=== PATIENT | male | born 1955 | race Caucasian/White ===

== ENCOUNTER 2023-03-17 07:30 | Outpatient (RCR) | payer MEDICARE, OTHER, SELFPAY | END 2023-06-05 11:27 | disposition home or self-care (01) | PROVIDERS: PCP Family Medicine; Visit Provider Family Medicine | DX: M54.16 Radiculopathy, lumbar region (principal); M54.50 Low back pain, unspecified; Z51.89 Encounter for other specified aftercare | CPT/HCPCS: 97110; 97140; 97161 ==

== ENCOUNTER 2023-03-24 17:17 | Outpatient (CLI) | payer MEDICARE, OTHER, SELFPAY | END 2023-03-24 17:18 | disposition home or self-care (01) | LOC: AMB 04-03 15:25 | PROVIDERS: PCP Family Medicine; Visit Provider Family Medicine | DX: R10.9 Unspecified abdominal pain (principal) | CPT/HCPCS: A0425; A0427 ==

== ENCOUNTER 2023-03-24 17:56 | Inpatient (IN) | payer MEDICARE, SELFPAY ==
[2023-03-24] VITALS (48 sets, daily range): BP systolic 116–159; BP diastolic 81–130; PULSE 63–150; RESP 16–18; TEMP 36.9–37.4; O2SAT 92–99; BMI 26.6; BMI 25.1
--- NOTE | 2023-03-24 18:07 | ED_ITS ---
HPI - General Adult General Time Seen by Provider: 18:07 Date Seen: 03/24/23 Chief complaint: Groin Pain Stated complaint: ill Time Seen by Provider: 03/24/23 18:03 Source: patient, EMS and RN notes reviewed Mode of arrival: EMS Limitations: no limitations History of Present Illness HPI narrative: This 68-year-old male was brought in by EMS for severe right hip/groin pain. States he was just getting up to go to the bathroom, stood, took a few steps and felt a snapping type pain in his right groin. He felt a similar pain but to lesser extent during physical therapy recently. He started physical therapy on March 13 for sciatica, diagnosed of urgent care. He was having pain from his back into his right leg. He did get a course of prednisone and muscle relaxant, probably Flexeril. He then was given oxycodone and Tylenol. He states he has had no imaging, no x-rays. There has been no trauma, he has had no fevers or chills, no falls. Earlier today he did note below the knee felt a little tingly, no acute numbness tingling right now. EMS did give him fentanyl EN route, it is vastly improved the right groin pain. It was a popping sensation that was severe and painful. He is asked if physical therapy has any concerns or thoughts that they brought up, he is not aware of any. He states he did schedule appointment today for follow-up to consider having some imaging done. He is noted to be tachycardic on arrival but is not feeling this, no chest pain, no shortness of breath. He is in the 150s on arrival, appears to be atrial fibrillation on the monitor. Will be getting an EKG. He does not feel is heart beating fast. He has not drank any alcohol in the last couple weeks discuss he has not been feeling well. Prior to that he states he would have probably 1-2 beers daily after work but maybe not every day. Related Data Home Medications Medication Instructions Recorded Confirmed gabapentin 300 mg capsule mg PO 03/24/23 lisinopril 10 1 tab PO DAILY 03/24/23 03/24/23 mg-hydrochlorothiazide 12.5 mg tablet oxycodone 5 mg tablet mg PO 03/24/23 Allergies Allergy/AdvReac Type Severity Reaction Status Date / Time No Known Drug Allergies Allergy Verified 03/24/23 18:04 Review of Systems Status of ROS: Reports: 6 or more systems reviewed and unremarkable except as noted in History and below PFSH PFSH Medical History Hypertension ?I10 - Essential (primary) hypertension (ICD-10) Surgical History H/O inguinal hernia repair ?Z98.890 - Other specified postprocedural states (ICD-10) ?Z87.19 - Personal history of other diseases of the digestive system (ICD-10) Social History (Updated 03/24/23 @ 22:38 by Jeri Telles PA-C) Do you use any of these nicotine containing products: None How often do you have a drink containing alcohol: never How often do you have six or more drinks on one occasion: Never AUDIT-C Alcohol total score: 0 Non-prescribed substance use: denies use Exam Const: Vital Signs, click to edit/add: Vital Signs - 24 hr 03/24/23 17:59 03/24/23 18:03 03/24/23 18:04 Temperature 98.5 F Pulse Rate 133 H 131 H Pulse Rate [Right Pulse Oximeter] 150 H Respiratory Rate 18 Blood Pressure 156/125 H Blood Pressure [Ri ght Upper Arm] 156/125 H Pulse Oximetry 95 96 95 Oxygen Delivery Me thod Room Air 03/24/23 18:15 03/24/23 18:18 03/24/23 18:30 Temperature Pulse Rate 134 H 135 H 125 H Pulse Rate [Right Pulse Oximeter] Respiratory Rate Blood Pressure 142/99 H Blood Pressure [Ri ght Upper Arm] Pulse Oximetry 96 94 94 Oxygen Delivery Me thod 03/24/23 18:31 03/24/23 18:33 03/24/23 18:50 Temperature Pulse Rate 116 H 100 Pulse Rate [Right Pulse Oximeter] Respiratory Rate Blood Pressure 126/101 H 145/130 H Blood Pressure [Ri ght Upper Arm] Pulse Oximetry 92 99 95 Oxygen Delivery Me thod 03/24/23 18:51 03/24/23 19:00 03/24/23 19:01 Temperature Pulse Rate 117 H 115 H 108 H Pulse Rate [Right Pulse Oximeter] Respiratory Rate Blood Pressure 132/109 H Blood Pressure [Ri ght Upper Arm] Pulse Oximetry 94 95 94 Oxygen Delivery Me thod 03/24/23 19:15 03/24/23 19:16 03/24/23 19:30 Temperature Pulse Rate 90 97 119 H Pulse Rate [Right Pulse Oximeter] Respiratory Rate Blood Pressure 148/104 H Blood Pressure [Ri ght Upper Arm] Pulse Oximetry 96 96 96 Oxygen Delivery Me thod 03/24/23 19:32 03/24/23 19:45 03/24/23 19:46 Temperature Pulse Rate 117 H 115 H 101 H Pulse Rate [Right Pulse Oximeter] Respiratory Rate Blood Pressure 155/105 H 142/94 H Blood Pressure [Ri ght Upper Arm] Pulse Oximetry 95 95 94 Oxygen Delivery Me thod 03/24/23 19:47 03/24/23 20:00 03/24/23 20:01 Temperature Pulse Rate 123 H 117 H 102 H Pulse Rate [Right Pulse Oximeter] Respiratory Rate Blood Pressure 116/97 H Blood Pressure [Ri ght Upper Arm] Pulse Oximetry 92 95 95 Oxygen Delivery Me thod 03/24/23 20:15 03/24/23 20:17 03/24/23 20:30 Temperature Pulse Rate 98 116 H 85 Pulse Rate [Right Pulse Oximeter] Respiratory Rate Blood Pressure 141/107 H Blood Pressure [Ri ght Upper Arm] Pulse Oximetry 96 96 96 Oxygen Delivery Me thod 03/24/23 20:31 03/24/23 20:45 03/24/23 20:46 Temperature Pulse Rate 100 103 H 114 H Pulse Rate [Right Pulse Oximeter] Respiratory Rate Blood Pressure 145/114 H 146/93 H Blood Pressure [Ri ght Upper Arm] Pulse Oximetry 97 96 95 Oxygen Delivery Me thod 03/24/23 21:00 03/24/23 21:01 03/24/23 21:02 Temperature Pulse Rate 95 104 H 97 Pulse Rate [Right Pulse Oximeter] Respiratory Rate Blood Pressure 138/102 H Blood Pressure [Ri ght Upper Arm] Pulse Oximetry 95 95 96 Oxygen Delivery Me thod 03/24/23 21:15 03/24/23 21:16 03/24/23 21:30 Temperature Pulse Rate 106 H 95 70 Pulse Rate [Right Pulse Oximeter] Respiratory Rate Blood Pressure 126/81 Blood Pressure [Ri ght Upper Arm] Pulse Oximetry 95 94 96 Oxygen Delivery Me thod 03/24/23 21:32 03/24/23 21:45 03/24/23 21:46 Temperature Pulse Rate 75 69 71 Pulse Rate [Right Pulse Oximeter] Respiratory Rate Blood Pressure 150/109 H 145/105 H Blood Pressure [Ri ght Upper Arm] Pulse Oximetry 95 96 95 Oxygen Delivery Me thod 03/24/23 21:47 03/24/23 22:00 03/24/23 22:00 Temperature Pulse Rate 69 66 Pulse Rate [Right Pulse Oximeter] Respiratory Rate 16 Blood Pressure Blood Pressure [Ri ght Upper Arm] Pulse Oximetry 96 96 Oxygen Delivery Me thod 03/24/23 22:01 03/24/23 22:15 03/24/23 22:16 Temperature Pulse Rate 69 64 64 Pulse Rate [Right Pulse Oximeter] Respiratory Rate Blood Pressure 149/117 H 146/99 H Blood Pressure [Ri ght Upper Arm] Pulse Oximetry 96 96 96 Oxygen Delivery Me thod 03/24/23 22:17 03/24/23 22:30 03/24/23 22:31 Temperature Pulse Rate 63 68 67 Pulse Rate [Right Pulse Oximeter] Respiratory Rate Blood Pressure 130/99 H Blood Pressure [Ri ght Upper Arm] Pulse Oximetry 96 96 95 Oxygen Delivery Me thod 03/24/23 22:45 03/24/23 22:47 Temperature Pulse Rate 64 65 Pulse Rate [Right Pulse Oximeter] Respiratory Rate Blood Pressure 159/101 H Blood Pressure [Ri ght Upper Arm] Pulse Oximetry 96 96 Oxygen Delivery Me thod Julio is lying flat in the bed and is looking comfortable, alert, interactive. He does notably have his right leg flexed at the hip and the knee, resting the foot on the bed. Sclera clear, conjugate gaze, symmetrical facial function. No neck masses noted. Lungs are clear anteriorly and at the axilla, no tachypnea. CV is irregular and fast, do not hear any murmur, normal S1-S2, no S3-S4. Abdomen is soft, nontender, nondistended. He has no inguinal mass or tenderness. I can internally and externally rotate his hip and he does not have hip pain per se. If I do a straight leg raise, he does complain of some pain in the thigh area. The knee itself is nontender. He has a little superficial sensation of skin change along the proximal tibial area. It does not seem to be the bone or the tibia itself underlying but rather a paresthesia of the skin. He has no lower extremity edema on this side, no calf tenderness. Strength is 5/5 and symmetric of his lower extremities, good dorsalis pedis pulses, normal light touch sensation of the toes, the skin coloration seems to be the same within both lower extremities. Documenting provider has reviewed patient's vital signs: yes Course Course ED Course: Reviewed with Julio that we will obtain some imaging. We will start with plain films, look at his lumbar spine, look at his pelvis and right hip. Reviewed with him he is also in atrial fibrillation, needs cardiac monitoring, pulse oximetry, will do a bolus IV fluids and give him 5 mg IV metoprolol. He will need a full complement of labs. He does not appear to have infection but an infectious source could stimulate potential atrial fibrillation, need to watch him closely to ensure that this is and systemic issues of infection. It is possible that he just has some underlying atrial fibrillation that he is unaware of. Will work for rate control, will need to discuss anticoagulation with him potentially. He reportedly has a right lumbar radiculopathy, need to consider other etiologies. It is possible he could have had a groin strain or irritation of a groin muscle with physical therapy potentially. Maybe he has been altering his gait. Will have to see but labs and imaging show. This point he does not think he can walk on this leg at all without significant pain. He states his pain is controlled while he is just lying here rest after the fentanyl from EMS. Reevaluation(s) Time of Reevaluation #1: 20:06 Reevaluation #1: Reviewed with patient and his that the images need to be resent to Radiology, there was an issue with the transmission. I do not see anything definitive on my preliminary review. He does appear to have what looks being L1 old anterior wedging, will await the radiologist's over-read. So far labs are not showing anything concerning. Heart rate was in the 110 when I was in talking to him but as we were discussing things, did jump back up to 130s. His is now present, states she has been at all his recent visits, does not recollect that his pulse has been elevated. We discussed atrial fibrillation, concern for possible stroke risk with it. Right now he needs rate control. Anticoagulation will need to be discussed more with him. He is not a candidate for cardioversion as he has no idea that his heart rate is fast and thus we have no idea when this started. Will give another small dose of 2.5 mg IV metoprolol and initial 25 mg oral dose metoprolol immediate release. Time of Reevaluation #2: 21:31 Reevaluation #2: Have spoken with Jeri Telles whom is covering the hospital floor. We have discussed this patient. She was able to see his visit with Carmenza Gallardo from the . She noted that there was right thigh knee pain noted after sitting for long periods with hunting. Ultrasound has not been done from what Jeir sees in the records. We will obtain a right lower extremity ultrasound. As I was talking to Jeri Telles, patient reportedly cardioverted. Follow-up EKG showing sinus rhythm. His imaging of his right thigh is showing soft tissue medial dystrophic calcification. I do think that this needs further imaging, likely an MRI would be more beneficial. Patient is going to need to come in for pain management. He cannot walk on this leg right now without severe pain. Potentially imaging his lumbar spine with MRI just to see if there is any impingement would likely be greatly beneficial. I do worry about this medial pain that he is feeling with the popping sensation and seen that there is a dystrophic calcification in the medial leg. Hospitalist does accept. Vital Signs Vital signs: Initial Vital Signs Temperature 98.5 F 03/24/23 17:59 Temperature Source Temporal Artery Scan 03/24/23 17:59 Pulse Rate 150 H 03/24/23 17:59 Pulse Rhythm Irregular 03/24/23 17:59 Respiratory Rate 18 03/24/23 17:59 Blood Pressure 156/125 H 03/24/23 17:59 Blood Pressure Mean 135 H 03/24/23 17:59 Blood Pressure Position Sitting 03/24/23 17:59 Pulse Oximetry 95 03/24/23 17:59 Oxygen Delivery Method Room Air 03/24/23 17:59 Vital Signs Temperature 98.5 F 03/24/23 17:59 Pulse Rate 150 H 03/24/23 17:59 Respiratory Rate 18 03/24/23 17:59 Blood Pressure 156/125 H 03/24/23 17:59 Pulse Oximetry 95 03/24/23 17:59 Oxygen Delivery Method Room Air 03/24/23 17:59 Temperature 99.4 F 03/24/23 23:19 Pulse Rate 64 03/24/23 23:19 Respiratory Rate 16 03/24/23 23:19 Blood Pressure 147/98 H 03/24/23 23:19 Pulse Oximetry 98 03/24/23 23:19 Oxygen Delivery Method Room Air 03/24/23 23:19 Medications Administered Medications: Discontinued Medications Generic Name Dose Route Start Last Admin Trade Name Dee PRN Reason Stop Dose Admin Fentanyl 50 mcg 03/24/23 20:28 03/24/23 20:42 Fentanyl 100 Mcg/2 Ml Inj IVP 03/24/23 20:29 50 mcg ONCE ONE Administration Sodium Chloride 500 mls @ 500 mls/hr 03/24/23 18:18 03/24/23 19:31 0.9 % Sodium Chloride 500 Ml IV 03/24/23 19:17 Infused .Q1H ONE Infusion Metoprolol Tartrate 5 mg 03/24/23 18:18 03/24/23 18:29 Metoprolol Tartrate 1 Mg/Ml Inj IVP 03/24/23 18:19 5 mg ONCE ONE Administration Metoprolol Tartrate 2.5 mg 03/24/23 20:09 03/24/23 20:20 Metoprolol Tartrate 1 Mg/Ml Inj IVP 03/24/23 20:10 2.5 mg ONCE ONE Administration Metoprolol Tartrate 25 mg 03/24/23 20:09 03/24/23 20:19 Metoprolol Tartrate 25 Mg Tablet PO 03/24/23 20:10 25 mg ONCE ONE Administration Medical Decision Making Lab Data Lab results reviewed: Yes I reviewed the patient's lab results Labs: Lab Results 03/24/23 Range/Units 18:30 WBC 16.95 H (4.50-11.00) K/uL RBC 6.16 H (4.30-5.90) m/uL Hgb 18.0 H (13.5-17.5) gm/dL Hct 50.7 (37.0-53.0) % MCV 82 (80-100) fL MCH 29 (26-34) pg MCHC 36 (32-36) gm/dL RDW Coeff of Mary 11.7 (11.5-15.5) % Plt Count 297 (140-440) K/uL Neut % (Auto) 86.9 H (42.0-72.0) % Lymph % (Auto) 4.8 L (20-44) % [place] % (Auto) 7.8 (0.0-11.0) % Eos % (Auto) 0.2 (0.0-7.0) % Baso % (Auto) 0.1 (0.0-3.0) % Neut # (Auto) 14.70 H (1.7-7.0) K/uL Lymph # (Auto) 0.80 L (0.90-2.90) K/uL [place] # (Auto) 1.30 H (0.00-0.90) K/UL Eos # (Auto) 0.00 (0.00-0.50) K/uL Baso # (Auto) 0.00 (0.00-0.30) K/uL Abs Immat Gran (auto) 0.00 (0.00-0.30) K/uL Imm/Tot Granulo (auto) 0.2 % Sodium 130 L (135-149) mmol/L Potassium 3.6 (3.6-5.1) mmol/L Chloride 95 L (96-114) mmol/L Carbon Dioxide 21 (20-32) mmol/L Anion Gap 14 (7-15) mEq/L BUN 25 (7-30) mg/dL Creatinine 0.6 (0.5-1.5) mg/dL Estimated Creat Clear 71.68 Estimated GFR 106 ml/min Glucose 125 H (60-115) mg/dL Lactate 1.5 (0.5-1.9) mmol/L Calcium 9.0 (8.4-10.6) mg/dL Magnesium 2.1 (1.5-2.6) mg/dL Total Bilirubin 1.4 (0.1-1.5) mg/dL AST 24 (12-35) U/L ALT 38 (4-50) U/L Alkaline Phosphatase 59 (40-150) U/L Total Creatine Kinase 48 L (54-186) U/L Troponin I < 0.01 L (0.01-0.04) ng/mL C-Reactive Protein 0.5 (0.5-1.0) mg/dL NT-Pro-B Natriuret Pep 36 pg/mL Total Protein 6.9 (6.0-8.3) g/dL Albumin 4.4 (3.3-5.0) g/dL Ethyl Alcohol < 0.01 L (0.01-0.03) % Imaging Data Chest x-ray: Attestation: I have reviewed the pertinent imaging results. My impression: No acute pathology on my preliminary review. Radiologist's impression: Patient: JULIO CHEEK Facility:?[facility] Patient ID:?[id number] Site Patient ID:?[id number]. Site :?1955 Study:?XRay Chest 1 VIEW-03/24/2023 8:05:38 PM Ordering Physician:?Alisa Hutchinson Final Report: INDICATION: Chest pain with atrial fibrillation and RVR. TECHNIQUE: Chest 1 views. COMPARISON: None. FINDINGS: Cardiovasculature and mediastinum: Heart size and vasculature are normal in caliber and appearance. Lungs and pleural spaces: Lungs are clear. No sign of infiltrate or mass. No sign of pleural effusion. No pneumothorax. Bones and soft tissues: No significant findings. IMPRESSION: No acute or significant findings. Dictated by Jorge Luis Guzmán MD @ 03/24/2023 8:37:50 PM (Electronic Signature) XR right hip: Attestation: I have reviewed the pertinent imaging results. Radiologist's impression: Patient: JULIO CHEEK Facility:?[facility] Patient ID:?[id number] Site Patient ID:?[id number]. Site :?1955 Study:?XRay Hip PELVIS AND RT HIP-03/24/2023 8:04:29 PM Ordering Physician:?Alisa Hutchinson Final Report: Indication: Right hip and groin pain. Technique: Two views of the right hip, single AP view of the pelvis. Comparison: None Findings/Impression: No acute fracture or dislocation. Nmyz-va-xyfowrhw degenerative changes of the bilateral hips. Enthesopathic changes along the right femoral greater trochanter. Dystrophic soft tissue calcifications in the proximal medial right thigh. Postsurgical changes in the lower pelvis. Dictated by Barbara Ruggiero MD @ 03/24/2023 8:42:59 PM (Electronic Signature) XR lumbar spine: Attestation: I have reviewed the pertinent imaging results. My impression: Anterior wedging of L1 that I can see, await Radiology over-read. Radiologist's impression: Patient: JULIO CHEEK Facility:?[facility] Patient ID:?[id number] Site Patient ID:?[id number]. Site :?1955 Study:?XRay Spine Lumbar 2 views-03/24/2023 8:03:25 PM Ordering Physician:?Alisa Hutchinson Final Report: Indication: Right sciatica. Technique: Two views of the lumbar spine, AP, cross-table lateral. Comparison: None Findings/Impression: Mild anterior compression deformity of the L1 vertebral body, age-indeterminate. No evidence of traumatic malalignment. Extensive facet arthropathy at the levels of L4-L5, and L5-S1. Large fecal burden noted within the visualized colon. Dictated by Barbara Ruggiero MD @ 03/24/2023 8:34:46 PM (Electronic Signature) Venous US: Attestation: I have reviewed the pertinent imaging results. Radiologist's impression: Patient: JULIO CHEEK Facility:?[facility] Patient ID:?[id number] Site Patient ID:?[id number]. Site :?1955 Study:?US Extremity Right -03/24/2023 10:26:46 PM Ordering Physician:?Alisa Hutchinson Final Report: INDICATION: Leg pain and swelling. TECHNIQUE: Ultrasound venous duplex lower right extremity. Compression venous exam was performed using garcia-scale, color Doppler, and spectral Doppler analysis. COMPARISON: None. FINDINGS: Deep veins: Sonographic imaging demonstrates the right common femoral, deep femoral, superficial femoral, popliteal, posterior tibial and the contralateral left common femoral veins to be fully compressible with normal color Doppler blood flow. Superficial veins: Greater saphenous vein is fully compressible. No popliteal cyst. IMPRESSION: No DVT in the right lower extremity. Dictated by Joe Salinas MD @ 03/24/2023 11:31:25 PM (Electronic Signature) ECG Data Attestation: I personally reviewed and interpreted this ECG as follows: (Atrial fibrillation with rapid ventricular response, rate 138 beats per minute. Some nonspecific ST segment changes particularly inferiorly, mild flipped T-wave inversion in 1 and aVL. QT corrected 524 milliseconds.) Prior ECG tracings: not available for review Interpretation: EKG from 9:29 p.m. shows sinus rhythm, 67 beats per minute. Q-waves V1 without any ST segment changes. QT corrected 409 milliseconds. Critical Care Time Critical Care Time Critical Care Time: Yes Attestation: The patient required my highest level preparedness to intervene emergently and I personally spent this critical care time directly and personally managing the patient. This critical care time included: Obtaining a history; Examining the patient; Pulse oximetry; Ordering and reviewing of studies; Arranging urgent treatment with development of a management plan; Evaluation of patients response to treatment; Frequent reassessment discussions with other providers. This critical care time was performed to assess and manage the high probability of imminent life-threatening deterioration that could result in multiorgan failure. It was exclusive of separate billable procedures and treating other patients and teaching time. Total Critical Care Time in Minutes: 60 Discharge Plan Discharge Clinical Impression: Acute pain of right thigh, Paroxysmal atrial fibrillation Patient Disposition: Admitted As Observation
--- NOTE | 2023-03-24 18:16 | CRLHL7_ITS ---
For Patients: As a result of the Cures Act, medical imaging exams and procedure reports are released immediately into your electronic medical record. You may view this report before your referring provider. If you have questions, please contact your health care provider. Indication: Right hip and groin pain. Technique: Two views of the right hip, single AP view of the pelvis. Comparison: None Findings/Impression: No acute fracture or dislocation. Coaa-cu-auywzlvo degenerative changes of the bilateral hips. Enthesopathic changes along the right femoral greater trochanter. Dystrophic soft tissue calcifications in the proximal medial right thigh. Postsurgical changes in the lower pelvis. Dictated by Barbara Ruggiero MD @ 03/24/2023 8:42:59 PM (Electronically Signed)
--- NOTE | 2023-03-24 18:16 | CRLHL7_ITS ---
For Patients: As a result of the Century Cures Act, medical imaging exams and procedure reports are released immediately into your electronic medical record. You may view this report before your referring provider. If you have questions, please contact your health care provider. Indication: Right sciatica. Technique: Two views of the lumbar spine, AP, cross-table lateral. Comparison: None Findings/Impression: Mild anterior compression deformity of the L1 vertebral body, age-indeterminate. No evidence of traumatic malalignment. Extensive facet arthropathy at the levels of L4-L5, and L5-S1. Large fecal burden noted within the visualized colon. Dictated by Barbara Ruggiero MD @ 03/24/2023 8:34:46 PM (Electronically Signed)
--- NOTE | 2023-03-24 18:17 | CRLHL7_ITS ---
For Patients: As a result of the Cures Act, medical imaging exams and procedure reports are released immediately into your electronic medical record. You may view this report before your referring provider. If you have questions, please contact your health care provider. INDICATION: Chest pain with atrial fibrillation and RVR. TECHNIQUE: Chest 1 views. COMPARISON: None. FINDINGS: Cardiovasculature and mediastinum: Heart size and vasculature are normal in caliber and appearance. Lungs and pleural spaces: Lungs are clear. No sign of infiltrate or mass. No sign of pleural effusion. No pneumothorax. Bones and soft tissues: No significant findings. IMPRESSION: No acute or significant findings. Dictated by Jorge Luis Guzmán MD @ 03/24/2023 8:37:50 PM (Electronically Signed)
[2023-03-24] MEDS: 0.9 % SODIUM CHLORIDE 500 ML 500 ML IV (18:29)
[2023-03-24] MEDS: METOPROLOL TARTRATE 1 MG/ML inj 5 MG IVP (18:29)
[2023-03-24 18:31] LABS: Lactate* 1.5 mmol/L (0.5-1.9)
[2023-03-24 18:42] LABS: Basophils Percent Auto 0.1 % (0.0-3.0); Eosinophils Percent Auto 0.2 % (0.0-7.0); Hematocrit 50.7 % (37.0-53.0); Immature Granulocytes Pct Auto 0.2 %; Lymphocytes Percent Auto 4.8 % (20-44); Mean Corpuscular HGB Conc 36 gm/dL (32-36); Mean Corpuscular Hemoglobin 29 pg (26-34); Mean Corpuscular Volume 82 fL (80-100); Monocytes Percent Auto 7.8 % (0.0-11.0); Neutrophils Percent Auto 86.9 % (42.0-72.0); Platelet Count* 297 K/uL (140-440); RDW Coefficient of Variation % 11.7 % (11.5-15.5); Red Blood Count 6.16 m/uL (4.30-5.90); White Blood Count* 16.95 K/uL (4.50-11.00)
[2023-03-24 18:44] LABS: Slide Review Reflex No
[2023-03-24 18:49] LABS: Albumin* 4.4 g/dL (3.3-5.0); Chloride* 95 mmol/L (96-114)
[2023-03-24 18:50] LABS: Sodium* 130 mmol/L (135-149)
[2023-03-24 18:51] LABS: Potassium* 3.6 mmol/L (3.6-5.1)
[2023-03-24 18:52] LABS: Bilirubin Total* 1.4 mg/dL (0.1-1.5); Creatinine* 0.6 mg/dL (0.5-1.5); Est. Creatinine Clearance* 71.68; Estimated Glomerular Filt Rate 106 ml/min
[2023-03-24 18:53] LABS: Alanine Aminotransferase* 38 U/L (4-50); Alkaline Phosphatase* 59 U/L (40-150); Aspartate Amino Transferase* 24 U/L (12-35); Blood Urea Nitrogen* 25 mg/dL (7-30); Carbon Dioxide* 21 mmol/L (20-32); Creatine Kinase* 48 U/L (54-186); Glucose* 125 mg/dL (60-115); Total Protein* 6.9 g/dL (6.0-8.3)
[2023-03-24 18:54] LABS: Magnesium* 2.1 mg/dL (1.5-2.6)
[2023-03-24 18:55] LABS: Anion Gap 14 mEq/L (7-15); Ethanol* < 0.01 % (0.01-0.03)
[2023-03-24 18:56] LABS: C Reactive Protein* 0.5 mg/dL (0.5-1.0)
[2023-03-24 19:05] LABS: NT Pro B Type NatriureticPept* 36 pg/mL; Troponin I* < 0.01 ng/mL (0.01-0.04)
[2023-03-24] MEDS: METOPROLOL TARTRATE 25 MG TABLET PO (20:19)
[2023-03-24] MEDS: METOPROLOL TARTRATE 1 MG/ML inj 2.5 MG IVP (20:20)
[2023-03-24] MEDS: fentaNYL 100 MCG/2 ML inj 50 MCG IVP (20:42)
--- NOTE | 2023-03-24 21:30 | CRLHL7_ITS ---
For Patients: As a result of the Century Cures Act, medical imaging exams and procedure reports are released immediately into your electronic medical record. You may view this report before your referring provider. If you have questions, please contact your health care provider. INDICATION: Leg pain and swelling. TECHNIQUE: Ultrasound venous duplex lower right extremity. Compression venous exam was performed using garcia-scale, color Doppler, and spectral Doppler analysis. COMPARISON: None. FINDINGS: Deep veins: Sonographic imaging demonstrates the right common femoral, deep femoral, superficial femoral, popliteal, posterior tibial and the contralateral left common femoral veins to be fully compressible with normal color Doppler blood flow. Superficial veins: Greater saphenous vein is fully compressible. No popliteal cyst. IMPRESSION: No DVT in the right lower extremity. Dictated by Joe Salinas MD @ 03/24/2023 11:31:25 PM (Electronically Signed)
--- NOTE | 2023-03-24 22:21 | PM.IMHP1 ---
Hospitalist- H&P: HPI History of Present Illness Date Seen: 03/24/23 Chief complaint: ill Narrative: Julio Nelson is a 68 year old male hypertension, diverticulitis, osteoarthritis right knee, bilateral inguinal hernia repair 4 years ago is admitted to the medical floor from the ED for right groin pain unrelieved by IV pain medications and inability to safely ambulate. Patient is seen in the ED with his at bedside and reports onset of right-sided low back pain radiating to right leg the Friday after Thanksgiving. Prior to that he had been experiencing right-sided pain in the flank area without related urinary symptoms. That pain has since resolved. He denies any trauma or injury related to right leg pain. He had been sitting in a deer stand for several hours, at least 4 hours at a time, and when he was done that night had excruciating pain. He was well enough the next morning to drive home per his . He has had pain ever since that date without a day of relief. Some days worse than others. Describes the pain as intense from groin to knee. Occasional popping sensation. Worse with flexion at the hip. He also reports a pins and needles like pain into the right dowling. No pain in the foot or toes. Denies weakness or loss of function of the right lower extremity. No change in bowel or bladder. Denies pain or swelling into the scrotum. Has been seen in the clinic and urgent care and has been started on 2 courses of steroids as well as oxycodone and gabapentin without relief of pain. Denies recent fevers chills sweats. No nausea vomiting. Tonight he was brought in by EMS who found the patient to be tachycardic and in atrial fibrillation. Patient has no personal or family history of cardiac arrhythmias. Denies sensation of racing heart, palpitations, flutters. Denies shortness of breath or dyspnea on exertion. Has had some episodes of lightheadedness and occasional headaches. When he was in the clinic on 03/19/2023, heart rate is documented as 78. In the ED, he was given metoprolol and reported to convert to normal sinus rhythm. Patient denies personal or family history of blood clots. Patient is a nonsmoker. Weekly but not daily alcohol use, 1-2 beers each time. No history of withdrawals or seizures. Review of Systems Narrative: REVIEW OF SYSTEMS: Complete review of systems performed and negative unless otherwise stated in HPI or below. PFSH [facility] Medical History Hypertension ?I10 - Essential (primary) hypertension (ICD-10) Surgical History H/O inguinal hernia repair ?Z98.890 - Other specified postprocedural states (ICD-10) ?Z87.19 - Personal history of other diseases of the digestive system (ICD-10) Social History (Updated 03/24/23 @ 22:38 by Jeri Telles PA-C) Do you use any of these nicotine containing products: None How often do you have a drink containing alcohol: 4 or more times a week How many standard drinks containing alcohol do you have on a typical day: 1 or 2 AUDIT-C Alcohol total score: 4 Meds Home Medications and Allergies Home Medications Medication Instructions Recorded Confirmed Type gabapentin 300 mg capsule mg PO 03/24/23 History lisinopril 10 1 tab PO DAILY 03/24/23 03/24/23 History mg-hydrochlorothiazide 12.5 mg tablet oxycodone 5 mg tablet mg PO 03/24/23 History Allergies Allergy/AdvReac Type Severity Reaction Status Date / Time No Known Drug Allergies Allergy Verified 03/24/23 18:04 Exam Narrative: Exam Narrative: PHYSICAL EXAM General: Lying flat in bed, very pleasant, conversant, NAD HEENT: Normocephalic, atraumatic, sclera white, EOMI, oral mucosa moist Cardiovascular: RRR currently, S1S2. No pitting edema Pulmonary: CTA bilaterally without rhonchi, rales, expiratory wheezes. No dyspnea Abdominal: Soft, nondistended, palpable pain right groin Neurological: Alert, answering questions appropriately, cranial nerves intact, no focal findings Extremities: No gross joint deformity or swelling. AROMI, groin and right lower extremity pain with flexion. Neurovascularly intact. Skin: Warm, dry. No erythema, streaking, rash Const: Vital Signs, click to edit/add: Vital Signs - 24 hr 03/24/23 17:59 03/24/23 18:03 03/24/23 18:04 Temperature 98.5 F Pulse Rate 133 H 131 H Pulse Rate [Right Pulse Oximeter] 150 H Respiratory Rate 18 Blood Pressure 156/125 H Blood Pressure [Ri ght Upper Arm] 156/125 H Pulse Oximetry 95 96 95 Oxygen Delivery Me thod Room Air 03/24/23 18:15 03/24/23 18:18 03/24/23 18:30 Temperature Pulse Rate 134 H 135 H 125 H Pulse Rate [Right Pulse Oximeter] Respiratory Rate Blood Pressure 142/99 H Blood Pressure [Ri ght Upper Arm] Pulse Oximetry 96 94 94 Oxygen Delivery Me thod 03/24/23 18:31 03/24/23 18:33 03/24/23 18:50 Temperature Pulse Rate 116 H 100 Pulse Rate [Right Pulse Oximeter] Respiratory Rate Blood Pressure 126/101 H 145/130 H Blood Pressure [Ri ght Upper Arm] Pulse Oximetry 92 99 95 Oxygen Delivery Me thod 03/24/23 18:51 03/24/23 19:00 03/24/23 19:01 Temperature Pulse Rate 117 H 115 H 108 H Pulse Rate [Right Pulse Oximeter] Respiratory Rate Blood Pressure 132/109 H Blood Pressure [Ri ght Upper Arm] Pulse Oximetry 94 95 94 Oxygen Delivery Me thod 03/24/23 19:15 03/24/23 19:16 03/24/23 19:30 Temperature Pulse Rate 90 97 119 H Pulse Rate [Right Pulse Oximeter] Respiratory Rate Blood Pressure 148/104 H Blood Pressure [Ri ght Upper Arm] Pulse Oximetry 96 96 96 Oxygen Delivery Me thod 03/24/23 19:32 03/24/23 19:45 03/24/23 19:46 Temperature Pulse Rate 117 H 115 H 101 H Pulse Rate [Right Pulse Oximeter] Respiratory Rate Blood Pressure 155/105 H 142/94 H Blood Pressure [Ri ght Upper Arm] Pulse Oximetry 95 95 94 Oxygen Delivery Me thod 03/24/23 19:47 03/24/23 20:00 03/24/23 20:01 Temperature Pulse Rate 123 H 117 H 102 H Pulse Rate [Right Pulse Oximeter] Respiratory Rate Blood Pressure 116/97 H Blood Pressure [Ri ght Upper Arm] Pulse Oximetry 92 95 95 Oxygen Delivery Me thod 03/24/23 20:15 03/24/23 20:17 03/24/23 20:30 Temperature Pulse Rate 98 116 H 85 Pulse Rate [Right Pulse Oximeter] Respiratory Rate Blood Pressure 141/107 H Blood Pressure [Ri ght Upper Arm] Pulse Oximetry 96 96 96 Oxygen Delivery Me od 03/24/23 20:31 03/24/23 20:45 03/24/23 20:46 Temperature Pulse Rate 100 103 H 114 H Pulse Rate [Right Pulse Oximeter] Respiratory Rate Blood Pressure 145/114 H 146/93 H Blood Pressure [Ri ght Upper Arm] Pulse Oximetry 97 96 95 [facility] 03/24/23 21:00 03/24/23 21:01 03/24/23 21:02 Temperature Pulse Rate 95 104 H 97 Pulse Rate [Right Pulse Oximeter] Respiratory Rate Blood Pressure 138/102 H Blood Pressure [Ri ght Upper Arm] Pulse Oximetry 95 95 96 [facility] 03/24/23 21:15 03/24/23 21:16 03/24/23 21:30 Temperature Pulse Rate 106 H 95 70 Pulse Rate [Right Pulse Oximeter] Respiratory Rate Blood Pressure 126/81 Blood Pressure [Ri ght Upper Arm] Pulse Oximetry 95 94 96 Oxygen Delivery [facility] 03/24/23 21:32 03/24/23 21:45 03/24/23 21:46 Temperature Pulse Rate 75 69 71 Pulse Rate [Right Pulse Oximeter] Respiratory Rate Blood Pressure 150/109 H 145/105 H Blood Pressure [Ri ght Upper Arm] Pulse Oximetry 95 96 95 [facility] 03/24/23 22:00 Temperature Pulse Rate Pulse Rate [Right Pulse Oximeter] Respiratory Rate 16 Blood Pressure Blood Pressure [Ri ght Upper Arm] Pulse Oximetry Oxygen Delivery [facility] Hospitalist - H&P: Result Labs Labs: Short CBC 03/24/23 Range/Units 18:30 WBC 16.95 H (4.50-11.00) K/uL Hgb 18.0 H (13.5-17.5) gm/dL Hct 50.7 (37.0-53.0) % Plt Count 297 (140-440) K/uL BMP 03/24/23 18:30 Sodium 130 L Potassium 3.6 Chloride 95 L Carbon Dioxide 21 BUN 25 Creatinine 0.6 Glucose 125 H Calcium 9.0 Cardiac Enzymes 03/24/23 Range/Units 18:30 Total Creatine Kinase 48 L (54-186) U/L Troponin I < 0.01 L (0.01-0.04) ng/mL Liver Function 03/24/23 Range/Units 18:30 Total Bilirubin 1.4 (0.1-1.5) mg/dL AST 24 (12-35) U/L ALT 38 (4-50) U/L Alkaline Phosphatase 59 (40-150) U/L Albumin 4.4 (3.3-5.0) g/dL ECG Attestation: I personally reviewed and interpreted this ECG as follows: ECG interpretation date: 03/24/23 Interpretation: 180: Atrial fibrillation with RVR, ventricular rate 138, QTC 524. Repeat EKG at 2128: Normal sinus rhythm, ventricular rate 67, QTC 409 Imaging Chest x-ray: Attestation: I have reviewed the pertinent imaging results. Radiologist's impression: Chest 1 views. COMPARISON: None. FINDINGS: Cardiovasculature and mediastinum: Heart size and vasculature are normal in caliber and appearance. Lungs and pleural spaces: Lungs are clear. No sign of infiltrate or mass. No sign of pleural effusion. No pneumothorax. Bones and soft tissues: No significant findings. IMPRESSION: No acute or significant findings. Lumbar spine: Attestation: I have reviewed the pertinent imaging results. Radiologist's impression: Two views of the lumbar spine, AP, cross-table lateral. Comparison: None Findings/Impression: Mild anterior compression deformity of the L1 vertebral body, age-indeterminate. No evidence of traumatic malalignment. Extensive facet arthropathy at the levels of L4-L5, and L5-S1. Large fecal burden noted within the visualized colon. Pelvis/right hip: Attestation: I have reviewed the pertinent imaging results. Radiologist's impression: Two views of the right hip, single AP view of the pelvis. Comparison: None Findings/Impression: No acute fracture or dislocation. [id number]-fg-[id number] degenerative changes of the bilateral hips. Enthesopathic changes along the right femoral greater trochanter. Dystrophic soft tissue calcifications in the proximal medial right thigh. Postsurgical changes in the lower pelvis. Venous US: Radiologist's impression: Right lower extremity DVT ultrasound - preliminary reading as negative for DVT Assessment and Plan Assessment and plan (1) Acute pain of right thigh: Problem comment: -onset 03/01/2023, nontraumatic -preliminary ultrasound negative for acute DVT -plain film shows dystrophic soft tissue calcifications in the proximal medial right thigh -magnesium and phosphorus levels ordered -MRI right lower extremity ordered -pain management to include scheduled Tylenol, lidocaine patch, ice/heat p.r.n., Dilaudid p.r.n. -PT/OT consults -further workup as warranted Status: Acute (2) Low back pain: Problem comment: -onset 03/01/2023, nontraumatic -mild anterior compression deformity of the L1 vertebral body, age indeterminate with arthropathy of L4-L5 and L5-S1 -MRI lumbar spine ordered -pain management as above -PT/OT consults -further workup as warranted Status: Acute (3) Paroxysmal atrial fibrillation: Problem comment: -unknown date of onset as asymptomatic, recent history of sedentary activity, no known family history, no personal history of cancer, recent use of prednisone -converted to NSR in ED following metoprolol dosing -telemetry -continue metoprolol 25 mg b.i.d. -Lovenox while hospitalized, convert to DOAC at discharge -outpatient Cardiology follow-up Status: Acute (4) Hypertension: Problem comment: -continue lisinopril hydrochlorothiazide, monitoring blood pressure while adding metoprolol for atrial fibrillation -hypertensive in the ED, continue to monitor Status: Chronic (5) Constipation: Problem comment: -in setting of recent opioid use -MiraLax daily and docusate twice daily until bowel movement Status: Acute Plan CODE: Full as discussed with patient and VTE PPX: Lovenox, transition to DOAC at discharge Disposition: Observation
--- NOTE | 2023-03-24 23:06 | ED.NURSE ---
pt report given to kimmy JOYNER
[2023-03-24] MEDS: ACETAMINOPHEN 325 MG TABLET 1000 MG PO (23:44)
[2023-03-24] MEDS: LIDOCAINE 5% PATCH 1 PATCH TRANSDERMA (23:44)
[2023-03-24] MEDS: HYDROmorphone 0.5 mg/0.5 ml inj IVP (23:54)
[2023-03-25] VITALS (9 sets, daily range): BP systolic 125–166; BP diastolic 78–106; PULSE 55–74; RESP 16; TEMP 36.3–37.2; O2SAT 94–98
[2023-03-25] MEDS: MELATONIN 3 MG TABLET PO (00:04)
[2023-03-25] MEDS: HYDROmorphone 0.5 mg/0.5 ml inj IVP ×5 (02:21→17:41)
[2023-03-25] MEDS: hydrOXYzine pamoate 25 MG CAPSULE PO ×3 (03:03→14:35)
[2023-03-25] MEDS: OXYCODONE 5 MG TABLET PO ×6 (03:05→23:38)
[2023-03-25] MEDS: ACETAMINOPHEN 500 MG TABLET 1000 MG PO ×4 (06:11→23:45)
--- NOTE | 2023-03-25 06:28 | PC.NURSE ---
Arrived to floor at 2300. A&O, pleasant and cooperative. Pt appeared uncomfortable and rating pain in right groin 5-10/10 pain. See eMAR for interventions. Uses urinal in bed. Pt reports being unable to sit on edge of bed due to pain. Pt hypertensive, VS otherwise stable. Lidocaine patch to right lower back.
[2023-03-25 07:03] LABS: Chloride* 97 mmol/L (96-114)
[2023-03-25 07:04] LABS: Hematocrit 50.8 % (37.0-53.0); Hemoglobin* 17.8 gm/dL (13.5-17.5); Mean Corpuscular HGB Conc 35 gm/dL (32-36); Mean Corpuscular Hemoglobin 29 pg (26-34); Mean Corpuscular Volume 84 fL (80-100); Platelet Count* 250 K/uL (140-440); Potassium* 3.7 mmol/L (3.6-5.1); Red Blood Count 6.07 m/uL (4.30-5.90); Sodium* 133 mmol/L (135-149); White Blood Count* 9.34 K/uL (4.50-11.00)
[2023-03-25 07:07] LABS: Anion Gap 8 mEq/L (7-15); Blood Urea Nitrogen* 23 mg/dL (7-30); Carbon Dioxide* 28 mmol/L (20-32); Creatinine* 0.7 mg/dL (0.5-1.5); Est. Creatinine Clearance* 74.01; Estimated Glomerular Filt Rate 101 ml/min; Glucose* 110 mg/dL (60-115)
[2023-03-25 07:08] LABS: Calcium* 9.2 mg/dL (8.4-10.6); Magnesium* 2.2 mg/dL (1.5-2.6); Phosphorus* 3.8 mg/dL (2.5-4.5)
[2023-03-25 07:10] LABS: C Reactive Protein* 0.6 mg/dL (0.5-1.0)
[2023-03-25 07:17] LABS: Slide Review Reflex No
[2023-03-25] MEDS: hydroCHLOROthiazide 12.5 MG CAPSULE PO (07:43)
[2023-03-25] MEDS: lisinopriL 10 MG TABLET PO (07:43)
[2023-03-25] MEDS: polyethylene glycoL 3350 17 GM PACK PO (07:44)
[2023-03-25] MEDS: KETOROLAC 30 MG/ML inj 15 MG IVP ×2 (07:44→15:45)
[2023-03-25] MEDS: SENNOSIDES/DOCUSATE TABLET 1 TAB PO ×2 (07:44→20:46)
[2023-03-25] MEDS: SODIUM CHLORIDE 0.9 % (FLUSH) 10 ML SYRINGE 5 ML IVF ×2 (07:45→20:46)
[2023-03-25 07:47] LABS: Troponin I* < 0.01 ng/mL (0.01-0.04)
--- NOTE | 2023-03-25 07:59 | CRLHL7_ITS ---
For Patients: As a result of the Century Cures Act, medical imaging exams and procedure reports are released immediately into your electronic medical record. You may view this report before your referring provider. If you have questions, please contact your health care provider. INDICATION: Right groin pain. COMPARISON: Right hip radiograph 03/24/2023. TECHNIQUE: Noncontrast MRI scan of the right hip. FINDINGS: Right hip: The right hip joint space is well maintained. No hip joint effusion is present. No fracture or osteonecrosis is present. The right hip girdle musculature is unremarkable. Pelvis and left hip: Large [id number] images demonstrate intact sacroiliac joints and pubic symphysis. The left hip joint space is well maintained. There are changes of previous lower anterior abdominal wall hernia repair. No recurrent abdominal wall hernia or mass is identified. No intrapelvic abnormality is identified. No acute fracture or osteonecrosis is seen. IMPRESSION: No acute bone or joint abnormality. Dictated by Perez Harding MD @ 03/25/2023 1:11:42 PM (Electronically Signed)
[2023-03-25] MEDS: GABAPENTIN 300 MG CAPSULE PO ×2 (08:06→20:46)
[2023-03-25] MEDS: METOPROLOL TARTRATE 25 MG TABLET PO ×2 (08:23→20:46)
--- NOTE | 2023-03-25 08:30 | PC.NURSE ---
Patient experiencing right groin pain. Patient stated he is fearful to get up because of what happened at home yesterday. PRN pain meds were given. Encouraged patient to pivot to chair to eat breakfast to reduce aspiration risk. Patient agreeable to try. Patient was able to stand and pivot without help. Once in chair, patient stated I can't do this, it hurts too bad, I need to get back to bed. Patient transferred back to bed independently. Ice pack was applied to groin. Patient wanted to rest to get the pain to calm down. Patient was checked on at 0930 and stated pain had calmed down and was doing okay.
[2023-03-25 08:40] LABS: Erythrocyte SedimentationRate* 2 mm/hr (2-15)
[2023-03-25] MEDS: LORazepam 2 MG/ML inj 0.5 MG IVP ×2 (11:52→17:43)
--- NOTE | 2023-03-25 14:10 | CRLHL7_ITS ---
For Patients: As a result of the Century Cures Act, medical imaging exams and procedure reports are released immediately into your electronic medical record. You may view this report before your referring provider. If you have questions, please contact your health care provider. INDICATION: Right groin pain. TECHNIQUE : Lumbar spine MRI without contrast. The following sequences were obtained: Sagittal T1, T2 weighted and STIR sequences. Axial T1 and T2 weighted sequences. COMPARISON: Lumbar spine radiographs from 03/24/2023. FINDINGS : Five lumbar type vertebral bodies, with the last fully formed disc space designated as L5-S1. Normal lumbar lordotic curve. No recent compression fracture or marrow replacing process. Chronic appearing L1 wedge compression fracture with minimal anterior height loss. Lower cord/conus signal is normal. The conus terminates at a normal location. No intradural lesion. Small left renal cyst. No retroperitoneal or paraspinous mass. Discs/Endplates: L5-S1 advanced disc height loss is disc desiccation and endplate remodeling. Mild disc degeneration elsewhere. Findings at individual levels as follows: T11-12: No spinal canal or neural foraminal stenosis. T12-L1: No spinal canal or neural foraminal stenosis. L1-2: Shallow right dorsal lateral protrusion with annular fissure minimally flattens the thecal sac. Bilateral low-grade facet arthrosis. No spinal canal or neural foraminal stenosis. L2-3: Mild disc bulge. Bilateral facet arthrosis. No spinal canal or neural foraminal stenosis. L3-4: No disc bulge. Bilateral grade facet arthrosis. No spinal canal or neural foraminal stenosis. L4-5: 12 millimeter right far lateral disc extrusion with cranial migration impinges the right L4 nerve root. Bilateral facet arthrosis. Mild left and moderate right neural foraminal stenosis. No spinal canal stenosis. L5-S1: Moderate disc bulge with overlying osteophytic ridging. Superimposed shallow right central protrusion component. Bilateral facet arthrosis. Left subarticular recess stenosis with mild impingement of the traversing left S1 nerve root. Contact of the traversing right S1 nerve root. Mild right and [id number] left neural foraminal stenosis. Imaged SI joints: Bilateral arthrosis. Imaged sacrum: Within normal limits. IMPRESSION: 1. At L4-5, a right far lateral disc extrusion with cranial migration impinges the right L4 nerve root. 2. At L5-S1, left subarticular recess stenosis with mild impingement of the traversing left S1 nerve root. Dictated by Alexandre Briggs MD @ 03/25/2023 7:24:20 PM (Electronically Signed)
--- NOTE | 2023-03-25 14:13 | PM.IMPN1 ---
Progress Note: A&P Assessment and plan (1) Acute pain of right thigh: Problem details: -onset 03/01/2023, nontraumatic -preliminary ultrasound negative for acute DVT -plain film shows dystrophic soft tissue calcifications in the proximal medial right thigh -MRI right hip, unremarkable -pain management to include scheduled Tylenol, lidocaine patch, ice/heat p.r.n., Dilaudid p.r.n. -PT/OT consults -further workup as warranted, will order MRI of the lumbosacral spine this afternoon Status: Acute (2) Low back pain: Problem details: -onset 03/01/2023, nontraumatic -mild anterior compression deformity of the L1 vertebral body, age indeterminate with arthropathy of L4-L5 and L5-S1 -MRI lumbar spine ordered -pain management as above -PT/OT consults -further workup as warranted Status: Acute (3) Paroxysmal atrial fibrillation: Problem details: -unknown date of onset as asymptomatic, recent history of sedentary activity, no known family history, no personal history of cancer, recent use of prednisone -converted to NSR in ED following metoprolol dosing -telemetry -decrease metoprolol 12.5 mg b.i.d. -Lovenox while hospitalized, convert to DOAC at discharge -outpatient Cardiology follow-up Status: Acute (4) Hypertension: Problem details: -continue lisinopril hydrochlorothiazide, monitoring blood pressure while adding metoprolol for atrial fibrillation -hypertensive in the ED, continue to monitor Status: Chronic (5) Constipation: Problem details: -in setting of recent opioid use -MiraLax daily and docusate twice daily until bowel movement Status: Acute Plan Reviewed with patient and they are agreeable to above stated plans and recommendations Time Spent With Patient Total time spent: 40 minutes Subjective Date Seen: 03/25/23 Interval history: Hospital day 2. History of present illness: ?Julio Nelson is a 68 year old male hypertension, diverticulitis, osteoarthritis right knee, bilateral inguinal hernia repair 4 years ago is admitted to the medical floor from the ED for right groin pain unrelieved by IV pain medications and inability to safely ambulate. Patient is seen in the ED with his at bedside and reports onset of right-sided low back pain radiating to right leg the Friday after Thanksgiving. Prior to that he had been experiencing right-sided pain in the flank area without related urinary symptoms. That pain has since resolved. He denies any trauma or injury related to right leg pain. He had been sitting in a deer stand for several hours, at least 4 hours at a time, and when he was done that night had excruciating pain. He was well enough the next morning to drive home per his . He has had pain ever since that date without a day of relief. Some days worse than others. Describes the pain as intense from groin to knee. Occasional popping sensation. Worse with flexion at the hip. He also reports a pins and needles like pain into the right dowling. No pain in the foot or toes. Denies weakness or loss of function of the right lower extremity. No change in bowel or bladder. Denies pain or swelling into the scrotum. Has been seen in the clinic and urgent care and has been started on 2 courses of steroids as well as oxycodone and gabapentin without relief of pain. Denies recent fevers chills sweats. No nausea vomiting. Tonight he was brought in by EMS who found the patient to be tachycardic and in atrial fibrillation. Patient has no personal or family history of cardiac arrhythmias. Denies sensation of racing heart, palpitations, flutters. Denies shortness of breath or dyspnea on exertion. Has had some episodes of lightheadedness and occasional headaches. When he was in the clinic on 03/19/2023, heart rate is documented as 78. In the ED, he was given metoprolol and reported to convert to normal sinus rhythm. Patient denies personal or family history of blood clots. 03/25/2023: Symptoms in low back and right leg are not improved. Was able to transfer from supine to sitting and sitting to standing and then to the recliner chair at his bedside with great difficulty. Demonstrating no focal motor neurologic deficits. When in the emergency department last night he spontaneously converted from atrial fib with rapid ventricular response to normal sinus rhythm. He has remained in normal sinus rhythm since then. Denies angina, syncope, nausea, vomiting, palpitations, diaphoresis, dyspnea. Exam Narrative: Exam Narrative: When he is laying still he is quite comfortable. When he attempts to move he becomes rather uncomfortable. I examine him in his hospital room. Alert, oriented to self, place, time, situation. From the, articulate, cooperative. Lungs clear to auscultation. Heart tones with regular rhythm, normal S1-S2, without murmur, gallop, or rub. Abdomen with active bowel sounds, soft, nontender. Sensation intact to light touch bilateral lower extremities. Again was able to transfer from supine to sitting, sitting to standing, and then ambulate a few feet from bed to chair at bedside. Had great discomfort with these efforts. Const: Vital Signs, click to edit/add: Vital Signs - 24 hr 03/24/23 17:59 03/24/23 18:03 03/24/23 18:04 Temperature 98.5 F Pulse Rate 133 H 131 H Pulse Rate [Pulse Oximeter] Pulse Rate [Right Pulse Oximeter] 150 H Respiratory Rate 18 Blood Pressure 156/125 H Blood Pressure [Le ft Arm] Blood Pressure [Ri ght Upper Arm] 156/125 H Pulse Oximetry 95 96 95 Oxygen Delivery Me thod Room Air 03/24/23 18:15 03/24/23 18:18 03/24/23 18:30 Temperature Pulse Rate 134 H 135 H 125 H Pulse Rate [Pulse Oximeter] Pulse Rate [Right Pulse Oximeter] Respiratory Rate Blood Pressure 142/99 H Blood Pressure [Le ft Arm] Blood Pressure [Ri ght Upper Arm] Pulse Oximetry 96 94 94 Oxygen Delivery Me thod 03/24/23 18:31 03/24/23 18:33 03/24/23 18:50 Temperature Pulse Rate 116 H 100 Pulse Rate [Pulse Oximeter] Pulse Rate [Right Pulse Oximeter] Respiratory Rate Blood Pressure 126/101 H 145/130 H Blood Pressure [Le ft Arm] Blood Pressure [Ri ght Upper Arm] Pulse Oximetry 92 99 95 Oxygen Delivery Me thod 03/24/23 18:51 03/24/23 19:00 03/24/23 19:01 Temperature Pulse Rate 117 H 115 H 108 H Pulse Rate [Pulse Oximeter] Pulse Rate [Right Pulse Oximeter] Respiratory Rate Blood Pressure 132/109 H Blood Pressure [Le ft Arm] Blood Pressure [Ri ght Upper Arm] Pulse Oximetry 94 95 94 Oxygen Delivery Me thod 03/24/23 19:15 03/24/23 19:16 03/24/23 19:30 Temperature Pulse Rate 90 97 119 H Pulse Rate [Pulse Oximeter] Pulse Rate [Right Pulse Oximeter] Respiratory Rate Blood Pressure 148/104 H Blood Pressure [Le ft Arm] Blood Pressure [Ri ght Upper Arm] Pulse Oximetry 96 96 96 Oxygen Delivery Me thod 03/24/23 19:32 03/24/23 19:45 03/24/23 19:46 Temperature Pulse Rate 117 H 115 H 101 H Pulse Rate [Pulse Oximeter] Pulse Rate [Right Pulse Oximeter] Respiratory Rate Blood Pressure 155/105 H 142/94 H Blood Pressure [Le ft Arm] Blood Pressure [Ri ght Upper Arm] Pulse Oximetry 95 95 94 Oxygen Delivery Me thod 03/24/23 19:47 03/24/23 20:00 03/24/23 20:01 Temperature Pulse Rate 123 H 117 H 102 H Pulse Rate [Pulse Oximeter] Pulse Rate [Right Pulse Oximeter] Respiratory Rate Blood Pressure 116/97 H Blood Pressure [Le ft Arm] Blood Pressure [Ri ght Upper Arm] Pulse Oximetry 92 95 95 Oxygen Delivery Me thod 03/24/23 20:15 03/24/23 20:17 03/24/23 20:30 Temperature Pulse Rate 98 116 H 85 Pulse Rate [Pulse Oximeter] Pulse Rate [Right Pulse Oximeter] Respiratory Rate Blood Pressure 141/107 H Blood Pressure [Le ft Arm] Blood Pressure [Ri ght Upper Arm] Pulse Oximetry 96 96 96 Oxygen Delivery Me thod 03/24/23 20:31 03/24/23 20:45 03/24/23 20:46 Temperature Pulse Rate 100 103 H 114 H Pulse Rate [Pulse Oximeter] Pulse Rate [Right Pulse Oximeter] Respiratory Rate Blood Pressure 145/114 H 146/93 H Blood Pressure [Le ft Arm] Blood Pressure [Ri ght Upper Arm] Pulse Oximetry 97 96 95 Oxygen Delivery Me thod 03/24/23 21:00 03/24/23 21:01 03/24/23 21:02 Temperature Pulse Rate 95 104 H 97 Pulse Rate [Pulse Oximeter] Pulse Rate [Right Pulse Oximeter] Respiratory Rate Blood Pressure 138/102 H Blood Pressure [Le ft Arm] Blood Pressure [Ri ght Upper Arm] Pulse Oximetry 95 95 96 Oxygen Delivery Me thod 03/24/23 21:15 03/24/23 21:16 03/24/23 21:30 Temperature Pulse Rate 106 H 95 70 Pulse Rate [Pulse Oximeter] Pulse Rate [Right Pulse Oximeter] Respiratory Rate Blood Pressure 126/81 Blood Pressure [Le ft Arm] Blood Pressure [Ri ght Upper Arm] Pulse Oximetry 95 94 96 Oxygen Delivery Me thod 03/24/23 21:32 03/24/23 21:45 03/24/23 21:46 Temperature Pulse Rate 75 69 71 Pulse Rate [Pulse Oximeter] Pulse Rate [Right Pulse Oximeter] Respiratory Rate Blood Pressure 150/109 H 145/105 H Blood Pressure [Le ft Arm] Blood Pressure [Ri ght Upper Arm] Pulse Oximetry 95 96 95 Oxygen Delivery Me thod 03/24/23 21:47 03/24/23 22:00 03/24/23 22:00 Temperature Pulse Rate 69 66 Pulse Rate [Pulse Oximeter] Pulse Rate [Right Pulse Oximeter] Respiratory Rate 16 Blood Pressure Blood Pressure [Le ft Arm] Blood Pressure [Ri ght Upper Arm] Pulse Oximetry 96 96 Oxygen Delivery Me thod 03/24/23 22:01 03/24/23 22:15 03/24/23 22:16 Temperature Pulse Rate 69 64 64 Pulse Rate [Pulse Oximeter] Pulse Rate [Right Pulse Oximeter] Respiratory Rate Blood Pressure 149/117 H 146/99 H Blood Pressure [Le ft Arm] Blood Pressure [Ri ght Upper Arm] Pulse Oximetry 96 96 96 Oxygen Delivery Me thod 03/24/23 22:17 03/24/23 22:30 03/24/23 22:31 Temperature Pulse Rate 63 68 67 Pulse Rate [Pulse Oximeter] Pulse Rate [Right Pulse Oximeter] Respiratory Rate Blood Pressure 130/99 H Blood Pressure [Le ft Arm] Blood Pressure [Ri ght Upper Arm] Pulse Oximetry 96 96 95 Oxygen Delivery Me thod 03/24/23 22:45 03/24/23 22:47 03/24/23 23:05 Temperature Pulse Rate 64 65 Pulse Rate [Pulse Oximeter] Pulse Rate [Right Pulse Oximeter] Respiratory Rate 16 Blood Pressure 159/101 H Blood Pressure [Le ft Arm] Blood Pressure [Ri ght Upper Arm] Pulse Oximetry 96 96 98 Oxygen Delivery Me thod Room Air 03/24/23 23:19 03/25/23 00:37 03/25/23 03:00 Temperature 99.4 F 99.0 F Pulse Rate 65 Pulse Rate [Pulse Oximeter] 64 66 Pulse Rate [Right Pulse Oximeter] Respiratory Rate 16 16 Blood Pressure Blood Pressure [Le ft Arm] 147/98 H 158/100 H Blood Pressure [Ri ght Upper Arm] Pulse Oximetry 98 96 Oxygen Delivery Me thod Room Air Room Air 03/25/23 08:08 03/25/23 11:10 Temperature 97.9 F 97.3 F L Pulse Rate Pulse Rate [Pulse Oximeter] 55 L Pulse Rate [Right Pulse Oximeter] 67 Respiratory Rate 16 16 Blood Pressure Blood Pressure [Le ft Arm] 151/105 H Blood Pressure [Ri ght Upper Arm] 166/106 H Pulse Oximetry 97 98 Oxygen Delivery Me thod Room Air Room Air Labs Labs: Laboratory Results - last 24 hr 03/24/23 03/25/23 03/25/23 18:30 06:13 07:17 WBC 16.95 H 9.34 RBC 6.16 H 6.07 H Hgb 18.0 H 17.8 H Hct 50.7 50.8 MCV 82 84 MCH 29 29 MCHC 36 35 RDW Coeff of Mary 11.7 Plt Count 297 250 Neut % (Auto) 86.9 H Lymph % (Auto) 4.8 L [place] % (Auto) 7.8 Eos % (Auto) 0.2 Baso % (Auto) 0.1 Neut # (Auto) 14.70 H Lymph # (Auto) 0.80 L [place] # (Auto) 1.30 H Eos # (Auto) 0.00 Baso # (Auto) 0.00 Abs Immat Gran (auto) 0.00 Imm/Tot Granulo (auto) 0.2 ESR 2 Sodium 130 L 133 L Potassium 3.6 3.7 Chloride 95 L 97 Carbon Dioxide 21 28 Anion Gap 14 8 BUN 25 23 Creatinine 0.6 0.7 Estimated Creat Clear 71.68 74.01 Estimated GFR 106 101 Glucose 125 H 110 Lactate 1.5 Calcium 9.0 9.2 Phosphorus 3.8 Magnesium 2.1 2.2 Total Bilirubin 1.4 AST 24 ALT 38 Alkaline Phosphatase 59 Total Creatine Kinase 48 L Troponin I < 0.01 L < 0.01 L C-Reactive Protein 0.5 0.6 NT-Pro-B Natriuret Pep 36 Total Protein 6.9 Albumin 4.4 Ethyl Alcohol < 0.01 L Lab Acknowledgement Test Added Imaging MR right hip: Attestation: I have reviewed the pertinent imaging results. Radiologist's impression: FINDINGS: Right hip: The right hip joint space is well maintained. No hip joint effusion is present. No fracture or osteonecrosis is present. The right hip girdle musculature is unremarkable. Pelvis and left hip: Large [id number] images demonstrate intact sacroiliac joints and pubic symphysis. The left hip joint space is well maintained. There are changes of previous lower anterior abdominal wall hernia repair. No recurrent abdominal wall hernia or mass is identified. No intrapelvic abnormality is identified. No acute fracture or osteonecrosis is seen. IMPRESSION: No acute bone or joint abnormality.
--- NOTE | 2023-03-25 14:20 | PC.NURSE ---
End of shift report: Patient is alert and oriented. Has had pain most of the day. Gets some relief with the Dilaudid. Has received PO Tylenol, oxy, Vistaril, IV Toradol, Dilaudid and Lorazepam. Patient resistive to getting out of bed. Attempted to sit in chair this morning but pain was too bad. Patient has been hypertensive. Has been in Normal sinus rhythm, sinus josé miguel at times today. Takes pills whole with water. BP is elevated and MD aware. Voiding without difficulty but urine is orange in color. No BM today but passing a lot of flatus. No BM since 03/23 per patient. Miralax and senna/Colace given. Tolerating a regular diet. Had MRI of hip this morning, will have MRI of lumbar this evening. Had bedside echocardiogram this afternoon. Good pulses in feet, but they are cool to touch. at bedside with patient most of shift.
--- NOTE | 2023-03-25 18:04 | PC.NURSE ---
shift note: vss stable. pt rating rt l/e pain . Prn medications administered. IV patent. Pt premedicated prior to MRI @6300.
[2023-03-25] MEDS: ENOXAPARIN 40 MG/0.4 ML INJ SUBCUT (20:46)
[2023-03-25] MEDS: LIDOCAINE 5% PATCH 1 PATCH TRANSDERMA (23:38)
[2023-03-26 03:19] VITALS: BP 146/95; PULSE 60; RESP 16; TEMP 37.1; O2SAT 97
[2023-03-26] MEDS: ACETAMINOPHEN 500 MG TABLET 1000 MG PO ×2 (06:12→12:21)
--- NOTE | 2023-03-26 06:15 | PC.NURSE ---
End of shift [id number]: A&O, pleasant and cooperative. Hypertensive but VS otherwise stable. Rating pain in right groin 07/15. See eMAR for interventions. Ambulated in room x3 and up to the bathroom with SBA, walker and gait belt. Denies lightheadedness or dizziness. Pt reports pain is better when ambulating.
[2023-03-26 07:00] VITALS: PULSE 64
[2023-03-26] MEDS: OXYCODONE 5 MG TABLET PO (08:33)
[2023-03-26] MEDS: polyethylene glycoL 3350 17 GM PACK PO (08:33)
[2023-03-26] MEDS: SENNOSIDES/DOCUSATE TABLET 1 TAB PO (08:34)
[2023-03-26] MEDS: METOPROLOL TARTRATE 25 MG TABLET PO (08:34)
[2023-03-26] MEDS: lisinopriL 10 MG TABLET PO (08:34)
[2023-03-26] MEDS: GABAPENTIN 300 MG CAPSULE PO (08:34)
[2023-03-26] MEDS: hydroCHLOROthiazide 12.5 MG CAPSULE PO (08:34)
[2023-03-26 08:35] VITALS: BP 139/79; PULSE 67; RESP 18; TEMP 36.6; O2SAT 96
--- NOTE | 2023-03-26 09:24 | PM.DS1 ---
DS: Providers Provider Date Seen: 03/26/23 Date of admission: 03/25/23 14:32 Primary care physician: González Stubbs MD Admitting Clinician: Marjorie Lang MD Consults: 03/24/23 23:05 Consult to Occupational Therapy [CONS] Routine Comment: Reason(s) for OT Consult:: Evaluate and Treat Any Restrictions?:: No Restrictions Consult to Physical Therapy [CONS] Routine Comment: Reason(s) for PT Consult:: Evaluate and Treat Any Restrictions?:: No Restrictions Attending Physician on discharge: Freddy Mills MD Date of Discharge: 03/26/23 DS: Diagnosis Discharge Diagnosis (1) Herniation of right side of L4-L5 intervertebral disc: Status: Acute Problem details: - MRI LS spine 03/25/2023: 1. At L4-5, a right far lateral disc extrusion with cranial migration impinges the right L4 nerve root. 2. At L5-S1, left subarticular recess stenosis with mild impingement of the traversing left S1 nerve root. (2) Degenerative joint disease (DJD) of lumbar spine: Status: Acute Problem details: - MRI LS spine 03/25/2023: 1. At L4-5, a right far lateral disc extrusion with cranial migration impinges the right L4 nerve root. 2. At L5-S1, left subarticular recess stenosis with mild impingement of the traversing left S1 nerve root. (3) Low back pain: Status: Acute Problem details: -onset 03/01/2023, nontraumatic -X-ray LS spine 03/24/2023: mild anterior compression deformity of the L1 vertebral body, age indeterminate with arthropathy of L4-L5 and L5-S1 - MRI LS spine 03/25/2023: 1. At L4-5, a right far lateral disc extrusion with cranial migration impinges the right L4 nerve root. 2. At L5-S1, left subarticular recess stenosis with mild impingement of the traversing left S1 nerve root. -pain management, Walker and cane -PT/OT consults -Refer to [facility] (4) Acute pain of right thigh: Status: Acute Problem details: -onset 03/01/2023, nontraumatic -Right LE duplex venous ultrasound 03/24/2023: negative for DVT -plain film X-ray 03/24/2023: dystrophic soft tissue calcifications in the proximal medial right thigh - Consider additional outpatient assessment as warranted - MRI LS spine 03/25/2023: 1. At L4-5, a right far lateral disc extrusion with cranial migration impinges the right L4 nerve root. 2. At L5-S1, left subarticular recess stenosis with mild impingement of the traversing left S1 nerve root. -pain management to include scheduled Tylenol, lidocaine patch, ice/heat p.r.n., Dilaudid p.r.n. -PT/OT consults -Refer to [facility] (5) Paroxysmal atrial fibrillation: Status: Acute Problem details: -unknown date of onset as asymptomatic, recent history of sedentary activity, no known family history, no personal history of cancer, recent use of prednisone -converted to NSR in ED following metoprolol dosing -telemetry -decrease metoprolol 12.5 mg b.i.d. -Lovenox while hospitalized, convert to DOAC at discharge -outpatient Cardiology follow-up (6) Hypertension: Status: Chronic Problem details: -continue lisinopril hydrochlorothiazide, monitoring blood pressure while adding metoprolol for atrial fibrillation -hypertensive in the ED, continue to monitor (7) Constipation: Status: Acute Problem details: -in setting of recent opioid use -Senna/docusate twice daily while on opioid analgesia DS: Summary Hospital Course Hospital Course: ?Julio Nleson is a 68 year old male hypertension, diverticulitis, osteoarthritis right knee, bilateral inguinal hernia repair 4 years ago is admitted to the medical floor from the ED for right groin pain unrelieved by IV pain medications and inability to safely ambulate. Patient is seen in the ED with his at bedside and reports onset of right-sided low back pain radiating to right leg the Friday after Thanksgiving. Prior to that he had been experiencing right-sided pain in the flank area without related urinary symptoms. That pain has since resolved. He denies any trauma or injury related to right leg pain. He had been sitting in a deer stand for several hours, at least 4 hours at a time, and when he was done that night had excruciating pain. He was well enough the next morning to drive home per his . He has had pain ever since that date without a day of relief. Some days worse than others. Describes the pain as intense from groin to knee. Occasional popping sensation. Worse with flexion at the hip. He also reports a pins and needles like pain into the right dowling. No pain in the foot or toes. Denies weakness or loss of function of the right lower extremity. No change in bowel or bladder. Denies pain or swelling into the scrotum. Has been seen in the clinic and urgent care and has been started on 2 courses of steroids as well as oxycodone and gabapentin without relief of pain. Denies recent fevers chills sweats. No nausea vomiting. Tonight he was brought in by EMS who found the patient to be tachycardic and in atrial fibrillation. Patient has no personal or family history of cardiac arrhythmias. Denies sensation of racing heart, palpitations, flutters. Denies shortness of breath or dyspnea on exertion. Has had some episodes of lightheadedness and occasional headaches. When he was in the clinic on 03/19/2023, heart rate is documented as 78. In the ED, he was given metoprolol and reported to convert to normal sinus rhythm. Patient denies personal or family history of blood clots. 03/25/2023: Symptoms in low back and right leg are not improved. Was able to transfer from supine to sitting and sitting to standing and then to the recliner chair at his bedside with great difficulty. Demonstrating no focal motor neurologic deficits. 03/26/2023: Symptoms modestly improved with non-pharmacological and pharmacological efforts and support, sufficiently that he can not perform his ADLs, can walk with a front-wheel walker. He and agree that he is in a much better situation than he was yesterday for returning home with plans as specified below. Regarding his new diagnosis of paroxysmal atrial fibrillation, when he presented to the emergency department he had asymptomatic A Fib RVR, and then spontaneously converted to normal sinus rhythm. He has remained in normal sinus rhythm for 48 hours since then. Denies angina, syncope, nausea, vomiting, palpitations, diaphoresis, dyspnea. Transthoracic echocardiogram obtained on 03/25/2023 was entirely normal with an ejection fraction of 60-65%. Recommended follow-up with his primary care physician and consider referral to Cardiology if warranted. We did start him on metoprolol tartrate 25 mg twice daily while in the hospital, in addition to his usual antihypertensive medications. Status at Discharge Functional status at discharge: uses cane/walker Overall status at discharge: patient is not back to baseline Time Spent with Patient Time attestation: Total time spent providing and/or coordinating discharge services: Time spent: Greater than 30 minutes Exam Narrative: Exam Narrative: He is no longer sitting motionless. He is moving more fluidly. Moving about in his bed. Able to transfer from supine to sitting without assistance. Feeding himself his breakfast. Able to walk with walker without assist. I examine him in his hospital room. Alert, oriented to self, place, time, situation. From the, articulate, cooperative. Lungs clear to auscultation. Heart tones with regular rhythm, normal S1-S2, without murmur, gallop, or rub. Abdomen with active bowel sounds, soft, nontender. Sensation intact to light touch bilateral lower extremities. Again was able to transfer from supine to sitting, sitting to standing, and then ambulate a few feet from bed to chair at bedside. Had much less discomfort with these efforts on day of discharge than he did the day prior. Const: Vital Signs, click to edit/add: Vital Signs - 24 hr 03/25/23 11:10 03/25/23 15:49 03/25/23 16:16 Temperature 97.3 F L 98.1 F Pulse Rate 74 Pulse Rate [Pulse Oximeter] 55 L 73 Respiratory Rate 16 16 Blood Pressure [Le ft Arm] 151/105 H 144/78 H Pulse Oximetry 98 94 Oxygen Delivery Me thod Room Air Room Air 03/25/23 16:16 03/25/23 19:31 03/25/23 22:34 Temperature 98.5 F Pulse Rate 74 68 Pulse Rate [Pulse Oximeter] 67 Respiratory Rate Blood Pressure [Le ft Arm] 154/97 H Pulse Oximetry 97 Oxygen Delivery Me thod 03/25/23 23:34 03/26/23 03:19 03/26/23 08:35 Temperature 98.9 F 98.8 F 97.8 F Pulse Rate Pulse Rate [Pulse Oximeter] 63 60 67 Respiratory Rate 16 16 18 Blood Pressure [Le ft Arm] 125/86 146/95 H 139/79 Pulse Oximetry 97 97 96 Oxygen Delivery Me thod Room Air Documenting provider has reviewed patient's vital signs: yes DS: Data Imaging Echo: Radiologist's impression: Normal transthoracic echocardiogram with ejection fraction of 60-65%. Right hip x-ray: Attestation: I have reviewed the pertinent imaging results. Radiologist's impression: Findings/Impression: No acute fracture or dislocation. [id number] degenerative changes of the bilateral hips. Enthesopathic changes along the right femoral greater trochanter. Dystrophic soft tissue calcifications in the proximal medial right thigh. Postsurgical changes in the lower pelvis. X-ray of lumbosacral spine: Attestation: I have reviewed the pertinent imaging results. Radiologist's impression: Findings/Impression: Mild anterior compression deformity of the L1 vertebral body, age-indeterminate. No evidence of traumatic malalignment. Extensive facet arthropathy at the levels of L4-L5, and L5-S1. Large fecal burden noted within the visualized colon. Chest x-ray: Attestation: I have reviewed the pertinent imaging results. Radiologist's impression: No acute abnormalities. Venous duplex ultrasound right lower extremity: Radiologist's impression: FINDINGS: Deep veins: Sonographic imaging demonstrates the right common femoral, deep femoral, superficial femoral, popliteal, posterior tibial and the contralateral left common femoral veins to be fully compressible with normal color Doppler blood flow. Superficial veins: Greater saphenous vein is fully compressible. No popliteal cyst. IMPRESSION: No DVT in the right lower extremity. MR - right hip: Attestation: I have reviewed the pertinent imaging results. Radiologist's impression: FINDINGS: Right hip: The right hip joint space is well maintained. No hip joint effusion is present. No fracture or osteonecrosis is present. The right hip girdle musculature is unremarkable. Pelvis and left hip: Large [id number] images demonstrate intact sacroiliac joints and pubic symphysis. The left hip joint space is well maintained. There are changes of previous lower anterior abdominal wall hernia repair. No recurrent abdominal wall hernia or mass is identified. No intrapelvic abnormality is identified. No acute fracture or osteonecrosis is seen. IMPRESSION: No acute bone or joint abnormality. MR- lumbosacral spine: Radiologist's impression: FINDINGS : Five lumbar type vertebral bodies, with the last fully formed disc space designated as L5-S1. Normal lumbar lordotic curve. No recent compression fracture or marrow replacing process. Chronic appearing L1 wedge compression fracture with minimal anterior height loss. Lower cord/conus signal is normal. The conus terminates at a normal location. No intradural lesion. Small left renal cyst. No retroperitoneal or paraspinous mass. Discs/Endplates: L5-S1 advanced disc height loss is disc desiccation and endplate remodeling. Mild disc degeneration elsewhere. Findings at individual levels as follows: T11-12: No spinal canal or neural foraminal stenosis. T12-L1: No spinal canal or neural foraminal stenosis. L1-2: Shallow right dorsal lateral protrusion with annular fissure minimally flattens the thecal sac. Bilateral low-grade facet arthrosis. No spinal canal or neural foraminal stenosis. L2-3: Mild disc bulge. Bilateral facet arthrosis. No spinal canal or neural foraminal stenosis. L3-4: No disc bulge. Bilateral grade facet arthrosis. No spinal canal or neural foraminal stenosis. L4-5: 12 millimeter right far lateral disc extrusion with cranial migration impinges the right L4 nerve root. Bilateral facet arthrosis. Mild left and moderate right neural foraminal stenosis. No spinal canal stenosis. L5-S1: Moderate disc bulge with overlying osteophytic ridging. Superimposed shallow right central protrusion component. Bilateral facet arthrosis. Left subarticular recess stenosis with mild impingement of the traversing left S1 nerve root. Contact of the traversing right S1 nerve root. Mild right and [id number] left neural foraminal stenosis. Imaged SI joints: Bilateral arthrosis. Imaged sacrum: Within normal limits. IMPRESSION: 1. At L4-5, a right far lateral disc extrusion with cranial migration impinges the right L4 nerve root. 2. At L5-S1, left subarticular recess stenosis with mild impingement of the traversing left S1 nerve root. Discharge Plan Discharge Disposition: Home, Self-Care Date of Admission: 03/25/23 14:32 Attending Provider on Discharge: Freddy Mills Primary Care Provider: González Stubbs Condition: Improved Anticipated Discharge Date/Time: 03/26/23 11:00 Discharge Medications: New hydroxyzine pamoate 25 mg Capsule 25 mg PO Q4H PRN (Reason: Pain) 14 Days Qty: 30 1RF acetaminophen 325 mg tablet 650 mg PO QID 14 Days Qty: 112 1RF ibuprofen 400 mg tablet 400 mg PO TID Qty: 90 2RF Rx Instructions: Take with food. Do not take on an empty stomach. omeprazole 20 mg capsule,delayed release(DR/EC) 20 mg PO DAILY Qty: 30 2RF Rx Instructions: Take this medication while taking prescribed ibuprofen for relief of pain and inflammation. oxycodone 5 mg tablet 5 mg PO QID PRN (Reason: pain) Qty: 30 0RF Rx Instructions: Do not take on an empty stomach. gabapentin 300 mg capsule 300 mg PO TID Qty: 90 2RF Rx Instructions: This medication helps decrease nerve pain. metoprolol tartrate 25 mg Tablet 25 mg PO BID 30 Days Qty: 60 1RF sennosides-docusate sodium [Stool Softener-Laxative] 8.6-50 mg Tablet 1 tab PO BID 30 Days Qty: 60 1RF Continued lisinopril-hydrochlorothiazide 10-12.5 mg tablet 1 tab PO DAILY Discontinued gabapentin 300 mg capsule 300 mg PO BID oxycodone 5 mg tablet 5 mg PO Q8H PRN Discharge Orders: Discharge Order (Routine); Ordered 03/26/23 Ordered By: Freddy Mills Patient Education: Acetaminophen (By mouth), Ibuprofen (By mouth), Omeprazole (By mouth), Hydroxyzine (By mouth), Gabapentin (By mouth), Oxycodone, Rapid Release (By mouth), Decision Aid for Herniated Disc in the Lower Back (GEN) Additional Instructions: 1. Keep appointments with Physical Therapy as already established; 2. Appointment at [facility] in 1-3 days; 3. Appointment with Dr. Stubbs next week regarding newly diagnosed paroxysmal atrial fibrillation and L4/L5 herniated disc with L4 impingement: consider cardiology consultation, and proceed physical therapy and with Spine Clinic assessments and interventions. Activity Level: Activity as Tolerated, Use Cane and Use Walker Discharge Diet: 2 gm Sodium Follow Up Appointments: González Stubbs MD [Primary Care Provider] - 04/02/23 11:45 am ([facility] for follow-up regarding symptomatic herniated disc at the right L4 region) Yoel Joyner MD [Staff Physician] - 04/17/23 11:00 am ([facility].) [facility] Inst[facility]
--- NOTE | 2023-03-26 13:14 | PC.NURSE ---
shift note: pt up with walker. Pt states rt lower back/hip pain 09/14. Pt medicated with prn meds and scheduled meds with no relief per pt. pt states he has increased dizziness when up ambulating. Dr. Amado notified and no further orders given. vss stable. pt afeb. IV dc'd intact Belongings sent with pt at nd. copies of dc instructions sent with pt at nd after review.
== END 2023-03-26 12:40 | disposition home or self-care (01) | DRG 552 ==
LOC: ED 21:57 → MEDSURG 22:57
PROVIDERS: Internal Medicine; Admitting Provider Physician Assistant; Emergency Provider Family Medicine; PCP Family Medicine; Visit Provider Physician Assistant
DX: M51.16 Intervertebral disc disorders with radiculopathy, lumbar region (principal); M51.17 Intervertebral disc disorders with radiculopathy, lumbosacral region; M48.07 Spinal stenosis, lumbosacral region; I48.0 Paroxysmal atrial fibrillation; M79.651 Pain in right thigh; I10 Essential (primary) hypertension; K59.03 Drug induced constipation; M47.896 Other spondylosis, lumbar region
CPT/HCPCS: 36415; 71045; 72100; 72148; 73502; 73721; 80048; 80053; 82077; 82550; 83605; 83735; 83880; 84100; 84484; 85025; 85027; 85651; 86140; 93306; 93971; 94761; 95992; 97110; 97162; 97165; 97530; 97535; 99285; 99291; G0378; A9270; J1170; J1650; J1885; J2060; J3010; J7120

== ENCOUNTER 2023-04-08 07:10 | Outpatient (CLI) | payer MEDICARE, SELFPAY | END 2023-04-08 07:11 | disposition home or self-care (01) | PROVIDERS: PCP Family Medicine; Visit Provider Family Medicine | DX: M54.16 Radiculopathy, lumbar region (principal); M51.36 Other intervertebral disc degeneration, lumbar region | CPT/HCPCS: 64483; J1100; Q9966 ==

== ENCOUNTER 2025-01-02 15:02 | Emergency (ER) | payer MEDICARE, SELFPAY ==
[2025-01-02] VITALS (8 sets, daily range): BP systolic 135–164; BP diastolic 86–107; PULSE 63–75; RESP 12–22; TEMP 37.2; O2SAT 97–99
--- OUTSIDE RECORDS SUMMARY | 2025-01-02 15:04 | XMS_ITS | Clinical Summary ---
Author Organization [employer] [facility] Address [address] [place] [address] Care Team Providers Care Pet Adoption Counselor Name Role Phone González Stubbs MD Primary Care Provider [phone] Chantel Ruiz MD Unavailable [phone] Cari Sargent MD Unavailable [phone] Allergies Active Allergy Reactions Criticality Noted Date Comments Unlisted Allergen (Include Detail In Comments) Rash 04/16/2023 Unknown what caused allergy - one of the medications for pain Was on hydroxyzine, gabapentin, and oxycodone all at the same time Medications metoprolol tartrate (LOPRESSOR) 50 mg tabletIndication s:Paroxysmal A-fib (HC),Essential hypertension TAKE 2 TABLETS(50 MG) BY MOUTH TWICE DAILY. Wait until they call for this. 180 Tablet 3 4 Active traMADoL (ULTRAM) 50 mg tabletIndication s:Left shoulder pain, unspecified chronicity Take 1 Tablet (50 mg) by mouth 3 times daily if needed for Pain. 15 Tablet 4 Active predniSONE (DELTASONE) 5 mg tabletIndication s:Chronic pain of both shoulders,TAYLOR positive,Bilater al hip pain,PMR (polymyalgia rheumatica) (HC) Take 1 Tablet (5 mg) by mouth once daily. 60 Tablet 1 5 Active Additional Information Patient not taking.Reported on 11/08/2024 predniSONE 1 mg tabletIndication s:PMR (polymyalgia rheumatica) (HC) Take 4 Tablets (4 mg) by mouth once daily with a meal. 360 Tablet 1 5 Active lisinopriL 10 mg tabletIndication s:Hypertension Take 1 Tablet (10 mg) by mouth once daily. 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 Diagnosed on MRI. Elevated PSA 06/29/2021 HTN (hypertension) 12/18/2007 Overview (06/20/2009): Updated by system to replace inactive record Diverticulitis of colon (without mention of hemo rrhage) 08/12/2006 Resolved Problems Problem Noted Date Diagnosed Date Resolved Date Cellulitis and abscess of toe 10/23/2009 07/01/2016 Encounters Date Type Department Care Team Description 11/08/2024 10:00 AM CDT Office Visit [facility] [address] [facility] [address] [place] [id number] Chantel Ruiz MD Follow Up (4 month follow up. ) 11/08/2024 Travel 11/05/2024 Travel from Last 3 Months Immunizations Immunization Administration Dates Next Due Td, Preservative Free (age >= 7 Years) 8 Tdap 01/07/2014 Family History Medical History Relation Name Comments Multiple sclerosis Brother 2 Juan of a n infection and MS at 60 Diabetes Father Other Father alzheimers of this at 72 Stroke Maternal Aunt Hypertension Mother Other Mother at 92 of c ovid and refusing treatment. Relation Name Status Comments Brother 1 Carl Alive Brother 2 Juan (Age 60) Father Maternal Aunt Mother (Age 92) Social History Tobacco Use Types Packs/Day Years Used Date Smoking Tobacco: Never Smokeless Tobacco: Never Tobacco Cessation:Counseling Given: Yes Alcohol Use Standard Drinks/Week Comments Yes 0 (1 standard drink = 0.6 oz pure alcohol) 2-3 times / week - see screening PHQ-2 Answer Date Recorded PHQ-2 TOTAL SCORE 0 11/05/2023 Social Connections Answer Date Recorded Do you often feel lonely or isolated from those around you? 0 03/08/2023 Alcohol Use Answer Date Recorded How often do you have a drink containing alcohol ? 3 11/25/2023 How many drinks containing a lcohol do you have on a typical day when you are drinking? 0 11/25/2023 How often do you have five or more drinks on one occasion? 0 11/25/2023 Financial Resource Strain Answer Date R ecorded Difficulty of Paying Living Expenses 3 03/08/2023 Difficulty of Paying Living Expenses Not on file 03/08/2023 Food Insecurity Answer Date Recorded Do you worry your food will run out before you are able to buy more? 1 03/08/2023 Transportation Needs Answer Date Record ed Does lack of transportation keep you from medica l appointments? 1 03/08/2023 Does lack of transportation keep you from work, meetings or getting things that you need? 1 03/08/2023 Housing Stability Answer Date Recorded What is your housing situation today? 1 03/08/2023 Utilities Answer Date Recorded Do you have trouble paying f or utilities (for example, heat, electricity, water, phone)? 1 03/08/2023 Sex and Gender Information Value Date Recorded Sex Assigned at Not on file Legal Sex Male 5:26 AM [employer] Gender Identity Not on file Sexual Orientation Not on file Occupation Industry Job Start Date Job End Date construction Not on file Not on file Not on file Obstetrics History Last Filed Vital Signs Vital Sign Reading Time Taken Comments Blood Pressure 112/70 11/08/2024 9:51 AM CDT Pulse 50 11/08/2024 9:51 AM CDT Temperature 36.7 C (98 F) 11/25/2023 3:41 PM CDT Respiratory Rate 18 03/08/2023 9:58 AM [employer] Oxygen Saturation 100% 11/08/2024 9:51 AM CDT Inhaled Oxygen Concentration - - Weight 82 kg (180 lb 11.2 oz) 11/08/2024 9:51 AM CDT Height 177 cm (5' 9.69) 11/08/2024 9:51 AM CDT Body Mass Index 26.16 11/08/2024 9:51 AM CDT Plan of Treatment Upcoming Encounters Date Type Department Care Team (Late st Contact Info) Description 03/10/2025 9:30 AM [employer] Office Visit [facility] [address] [address] [place] [address] [place] [address] Health Maintenance Due Date Last Done Comments Pneumococcal series for age 50+ (1 of 1 - PCV) 12/31/2005 Zoster (shingles) series for age 50+ (1 of 2) 12/31/2005 Colonoscopy through age 75 12/29/2019 12/28/2009, Tetanus booster 01/08/2024 01/07/2014, 04/22/2007 Depression screening for age 12+ 11/04/2024 11/05/2023, 10/09/2022, 10/07/2022, Additional history exists Medicare Wellness for age 65+ 11/05/2024 11/05/2023, 06/29/2021 COVID-19 vaccine series ( - 2023- season) 2024 Influenza Vaccine (#1) 2024 BMI (ht and wt on same day) for age 18+ 11/08/2025 11/08/2024, 07/20/2024, 03/25/2024, Additional history exists Lipids for age 45-75 11/19/2028 11/20/2023, 09/27/2022, 06/29/2021, Additional history exists RSV vaccine for adults or (1 - 1-dose 75+ series) 12/31/2030 Hepatitis C screening for age 18-79 Completed 12/17/2023, 04/06/2015 Hepatitis B series for 19+ Aged Out N o longer eligible based on patient's age to complete this topic Procedures Procedure Name Priority Date/Time Associated Diagnosis Comments VT BLOOD COUNT COMPLETE AUTO&AUTO DIFRNTL WBC Routine 11/08/2024 10:25 AM CDT PMR (polymyalgia rheumatica) (HC) C-REACTIVE PROTEIN Routine 11/08/2024 10 :24 AM CDT PMR (polymyalgia rheumatica) (HC) SEDIMENTATION RATE Routine 11/08/2024 10 :24 AM CDT PMR (polymyalgia rheumatica) (HC) COMP METABOLIC PANEL Routine 11/08/2024 10:24 AM CDT PMR (polymyalgia rheumatica) (HC) DNA DOUBLE-STRANDED (DSDNA) ANTIBODIES BY WAYLON LUCADORE IFA Routine 11/08/2024 10:24 AM CDT TAYLOR positive C4 COMPLEMENT Routine 11/08/2024 10:24 AM CDT TAYLOR positive C3 COMPLEMENT Routine 11/08/2024 10:24 AM CDT TAYLOR positive CK TOTAL Routine 11/08/2024 10:24 AM CDT PMR (polymyalgia rheumatica) (HC) TSH Routine 11/08/2024 10:24 AM CDT Asymptomatic bradycardia ANTI HCV Routine 12/17/2023 8:35 AM CDT Elevated alkaline phosphatase level LIPID PANEL W REFLEX MEASURED LDL Routine 11/20/2023 12:30 PM CDT Lipid screening from Last 3 Months or Most Recently Relevant to Health Maintenance Results * (ABNORMAL) CBC AND DIFFERENTIAL (11/08/2024 10:25 AM CDT) WHITE BLOOD CELL COUNT 8.1 3.8 - 10.8 Thousand/u L [facility] ( RED BLOOD CELL COUNT 5.12 4.20 - 5.80 Million/uL [facility] ( HEMOGLOBIN 14.2 13.2 - 17.1 g/dL [facility] ( HEMATOCRIT 44.0 38.5 - 50.0 % [facility] ( MCV 85.9 80.0 - 100.0 fL [facility] ( MCH 27.7 27.0 - 33.0 pg [facility] ( MCHC 32.3 32.0 - 36.0 g/dL [facility] ( Comment: For adults, a slight decrease in the calculated MCHC value (in the range of 30 to 32 g/dL) is most likely not clinically significant; however, it should be interpreted with caution in correlation with other red cell parameters and the patient's clinical condition. RDW 12.5 11.0 - 15.0 % [facility] ( PLATELET COUNT 267 140 - 400 Thousand/u L [facility] ( MPV 9.3 7.5 - 12.5 fL [facility] ( ABSOLUTE NEUTROPHILS 6,739 1,500 - 7,800 cells/uL [facility] ( ABSOLUTE LYMPHOCYTES 648(L) 850 - 3,900 cells/uL [facility] ( ABSOLUTE MONOCYTES 543 200 - 950 cells/uL [facility] ( ABSOLUTE EOSINOPHILS 154 15 - 500 cells/uL [facility] ( ABSOLUTE BASOPHILS 16 0 - 200 cells/uL [facility] ( NEUTROPHILS 83.2 % [facility] ( LYMPHOCYTES 8.0 % [facility] ( MONOCYTES 6.7 % [facility] ( EOSINOPHILS 1.9 % [facility] ( BASOPHILS 0.2 % [facility] ( Blood BLOOD SPECIMEN / Unknown 11/08/2024 10:25 AM CDT 11/08/2024 10:26 AM CDT Narrative [facility] - 11/08/2024 10:44 AM CDT SPLIT 11/08/2024 FROM [id number] us Chantel Ruiz MD HEMATOLOGY Fin al Result [facility] [address] [place] [address], [place] [facility] ( [address] [place] [address] * SEDIMENTATION RATE (11/08/2024 10:24 AM CDT) Pathologist [facility] SED RATE BY MODIFIED WESTERGREN 2 < OR = 20 mm/h [facility] Blood BLOOD SPECIMEN / Unknown 11/08/2024 10:24 AM CDT 11/08/2024 10:24 AM CDT Narrative [facility] - 11/09/2024 4:48 AM CDT MULTIPLE TESTING PRIORITIES; ROUTINE TESTING TO FOLLOW. Chantel Ruiz MD HEMATOLOGY Fin al Result Performing Organization Address City/[facility]/ZIP Co de Phone Number [employer] [address] [phone], [facility] [address] [place] [phone] * TSH (11/08/2024 10:24 AM CDT) Pathologist [facility] TSH 1.62 0.40 - 4.50 mIU/L [facility] Blood BLOOD SPECIMEN / Unknown 11/08/2024 10:24 AM CDT 11/08/2024 10:24 AM CDT Narrative [facility] - 11/09/2024 4:15 AM CDT MULTIPLE TESTING PRIORITIES; ROUTINE TESTING TO FOLLOW. Chantel Ruiz MD CHEMISTRY Fin al Result [employer] [address] [phone], [facility] [address] [place] [phone] * C3 COMPLEMENT (11/08/2024 10:24 AM CDT) [facility] COMPLEMENT COMPONENT C3C 162 82 - 185 mg/dL [facility] Blood BLOOD SPECIMEN / Unknown 11/08/2024 10:24 AM CDT 11/08/2024 10:24 AM CDT Narrative [facility] - 11/09/2024 4:34 PM CDT MULTIPLE TESTING PRIORITIES; ROUTINE TESTING TO FOLLOW. us Chantel Ruiz MD CHEMISTRY Fin al Result [employer] [address] [phone], [facility] [address] [place] [address] * C4 COMPLEMENT (11/08/2024 10:24 AM CDT) COMPLEMENT COMPONENT C4C 25 15 - 53 mg/dL [facility] Blood BLOOD SPECIMEN / Unknown 11/08/2024 10:24 AM CDT 11/08/2024 10:24 AM CDT Narrative [facility] - 11/09/2024 4:34 PM CDT MULTIPLE TESTING PRIORITIES; ROUTINE TESTING TO FOLLOW. us Chantel Ruiz MD CHEMISTRY Fin al Result Performing Organization Address [facility]/ZIP Co de Phone Number [employer] [address] [phone], [facility] [address] [place] [phone] * DNA DOUBLE-STRANDED (DSDNA) ANTIBODIES BY CRITHIDIA LUCILIAE IFA (11/08/2024 10:24 AM CDT) DNA (DS) ANTIBODY <1 IU/mL [facility] Comment: IU/mL Interpretation < or = 4 Negative 5-9 Indeterminate > or = 10 Positive Blood BLOOD SPECIMEN / Unknown 11/08/2024 10:24 AM CDT 11/08/2024 10:24 AM CDT Narrative [facility] - 11/09/2024 1:40 PM CDT MULTIPLE TESTING PRIORITIES; ROUTINE TESTING TO FOLLOW. us Chantel Ruiz MD SEND OUTS Fin al Result Performing Organization Address [facility] de Phone Number [employer] [facility] [address] [place] [address], [place] [phone] [facility] [address] [place] [phone] * (ABNORMAL) C-REACTIVE PROTEIN (11/08/2024 10:24 AM CDT) C-REACTIVE PROTEIN (MG/L) 10.8(H) <8.0 mg/L [facility] Blood BLOOD SPECIMEN / Unknown 11/08/2024 10:24 AM CDT 11/08/2024 10:24 AM CDT Narrative [facility] - 11/09/2024 1:54 PM CDT MULTIPLE TESTING PRIORITIES; ROUTINE TESTING TO FOLLOW. us Chantel Ruiz MD CHEMISTRY Fin al Result Performing Organization Address [facility] de Phone Number [employer] [facility] [address] [place] [phone], [facility] [address] [place] [phone] * CK TOTAL (11/08/2024 10:24 AM CDT) CREATINE KINASE, TOTAL 28 22 - 308 U/L [facility] Blood BLOOD SPECIMEN / Unknown 11/08/2024 10:24 AM CDT 11/08/2024 10:24 AM CDT Narrative [facility] - 11/09/2024 5:06 AM CDT MULTIPLE TESTING PRIORITIES; ROUTINE TESTING TO FOLLOW. us Chantel Ruiz MD CHEMISTRY Fin al Result Performing Organization Address City/[facility] Co de Phone Number [employer] [facility] [address] [place] [address], [facility] [address] [place] [address] * (ABNORMAL) COMP METABOLIC PANEL (11/08/2024 10:24 AM CDT) [facility] GLUCOSE 97 65 - 99 mg/dL [facility] Comment: Fasting reference interval UREA NITROGEN (BUN) 17 7 - 25 mg/dL [facility] CREATININE 0.74 0.70 - 1.35 mg/dL [facility] EGFR 99 > OR = 60 mL/min/1. 73m2 [facility] BUN/CREATININE RATIO SEE NOTE: 6 - 22 (calc) [facility] Comment: Not Reported: BUN and Creatinine are within reference range. SODIUM 140 135 - 146 mmol/L [facility] POTASSIUM 4.3 3.5 - 5.3 mmol/L [facility] CHLORIDE 104 98 - 110 mmol/L [facility] CARBON DIOXIDE 27 20 - 32 mmol/L [facility] CALCIUM 9.1 8.6 - 10.3 mg/dL [facility] PROTEIN, TOTAL 5.8(L) 6.1 - 8.1 g/dL [facility] ALBUMIN 3.9 3.6 - 5.1 g/dL [facility] GLOBULIN 1.9 1.9 - 3.7 g/dL (calc) [facility] ALBUMIN/GLOBULIN RATIO 2.1 1.0 - 2.5 (calc) [facility] BILIRUBIN, TOTAL 0.4 0.2 - 1.2 mg/dL [facility] ALKALINE PHOSPHATASE 90 35 - 144 U/L [facility] AST 14 10 - 35 U/L [facility] ALT 14 9 - 46 U/L [facility] Blood BLOOD SPECIMEN / Unknown 11/08/2024 10:24 AM CDT 11/08/2024 10:24 AM CDT Narrative [facility] - 11/09/2024 5:06 AM CDT MULTIPLE TESTING PRIORITIES; ROUTINE TESTING TO FOLLOW. Chantel Ruiz MD CHEMISTRY Fin al Result Performing Organization Address City/[facility]/ZIP Co de Phone Number [employer] [facility] [address] [place] [address], [facility] [address] [place] [address] * ANTI HCV (12/17/2023 8:35 AM CDT) Pathologist [facility] HEPATITIS C ANTIBODY Non-Reacti ve Non-React king 12/17/2023 10:11 PM CDT [facility] Comment:Please note, per www .CDC.gov: If a patient is known to be at high risk of HCV infection, or is symptomatic, and the physician's suspicion of HCV infection is high, HCV RNA testing is often employed and is of diagnostic value, even after an initial negative anti-HCV test result. Blood BLOOD SPECIMEN / Unknown Venipuncture / Unknown 12/17/2023 8:35 AM CDT 12/17/2023 8:35 AM CDT Chantel Ruiz MD SEND OUTS Fin al Result Performing Organization Address City/[facility]/ZIP Co de Phone Number [facility] [address] [place] [phone], * LIPID PANEL W REFLEX MEASURED LDL (11/20/2023 12:30 PM CDT) CHOLESTEROL,TOTAL 168 100 - 199 mg/dL 11/20/2023 10:56 PM CDT [facility] Comment: Cholesterol, Total Reference Ranges Desirable <200 mg/dL Borderline 200-239 mg/dL High >=240 mg/dL TRIGLYCERIDES 88 <150 mg/dL 11/20/2023 10:56 PM CDT [facility] HDL CHOLESTEROL 52 >40 mg/dL 10:56 PM CDT [facility] NON-HDL CHOLESTEROL 116 <145 mg/dl 11/20/2023 10:56 PM CDT [facility] CHOL/HDL RATIO 3.23 <4.50 11/20/2023 10:56 PM CDT [facility] LDL CHOLESTEROL 98 <=130 mg/dL 11/20/2023 10:56 PM CDT [facility] VLDL CHOLESTEROL 18 <=30 mg/dL 11/20/2023 10:56 PM CDT [facility] PROVIDER ORDERED STATUS RANDOM 11/20/2023 10:56 PM CDT [facility] Blood BLOOD SPECIMEN / Unknown Venipuncture / Unknown 11/20/2023 12:30 PM CDT 11/20/2023 12:39 PM CDT us González Stubbs MD CHEMISTRY Final Resu lt [facility] [address] [place] [phone], from Last 3 Months or Most Recently Relevant to Health Maintenance Insurance MEDICARE PB ONLY MEDICARE PART B HB ONLY COMMERCIAL Care Teams Pet Adoption Counselor Relationship Specialty Start Date End Date González Stubbs MD [address] [place] [address] PCP - General Family Practice 09/04/22 [place] [address] [place] [address] Rheumatology 04/13/24 Cari Sargent MD [address] [place] [address] Surgery - Urology 04/15/24
--- NOTE | 2025-01-02 15:35 | CT_ITS ---
Patient: SILVIA CHEEK Facility:?[facility] Patient ID:?[id number] Site Patient ID:?[id number]. Site :?1955 Study:?CT-Head W/O-01/02/2025 4:15:00 PM Ordering Physician:Surjit Diallo Final Report: CT HEAD DATE: 01/02/2025 CLINICAL HISTORY: Patient with right sided amaurosis fugax. TECHNIQUE: Standard CT scanning of the head was performed. COMPARISON: None. FINDINGS: There is no intracranial hemorrhage. There is no territorial infarction. There are mild microangiopathic changes. There is diffuse parenchymal volume loss. There is no mass effect or midline shift. The calvarium is unremarkable. The orbits are unremarkable. The paranasal sinuses are unremarkable. The mastoid air cells are unremarkable. The soft tissues are unremarkable. IMPRESSION: 1. No intracranial hemorrhage or territorial infarction. 2. Mild microangiopathic changes and diffuse parenchymal volume loss. Please note that all CT scans at this facility use dose modulation, iterative reconstruction, and/or weight-based dosing when appropriate to reduce radiation dose to as low as reasonably achievable. Dictated by: Samantha Alaniz MD @ 01/02/2025 16:21:53 (Electronic Signature)
--- NOTE | 2025-01-02 15:35 | CT_ITS ---
Patient: SILVIA CHEEK Facility:?[facility] Patient ID:?[id number] Site Patient ID:?[id number]. Site :?1955 Study:?CT-Neck Angio CTA NECK W/ISOVUE 370 95CC-01/02/2025 4:17:46 PM Ordering Physician:Surjit Diallo Final Report: CT ANGIOGRAM HEAD AND NECK DATE: 01/02/2025. CLINICAL HISTORY: Patient with right-sided amaurosis fugax. TECHNIQUE: Standard helical CT image acquisition through the head and neck was performed after intravenous contrast bolus enhancement. 2D and 3D MIP images for post-processing were performed and interpreted on an independent workstation and 3D images were permanently archived. COMPARISON: CT same day. FINDINGS: The origins of the great vessels from the aortic arch are patent. The origin of the right vertebral artery is patent. The origin of the left vertebral artery is patent. The common carotid arteries are patent. There is no stenosis at the origin of the right internal carotid artery by NASCET criteria. There is no stenosis at the origin of the left internal carotid artery by NASCET criteria. The rest of the cervical segments of the internal carotid arteries are patent up to their intracranial segments. The intracranial segments of the internal carotid arteries are patent. The vertebral arteries are codominant. The cervical segments of the vertebral arteries are patent. The intracranial segments of the vertebral arteries are patent. The middle cerebral arteries are normal without aneurysm or proximal occlusion identified. The anterior cerebral arteries are normal without aneurysm or proximal occlusion identified. The anterior communicating artery is well visualized and appears normal. The basilar artery is normal without aneurysm or occlusion. The posterior cerebral arteries are normal without aneurysm or proximal occlusion. There is normal opacification of major intracranial venous structures. The visualized lung apices demonstrate an indeterminate 2.8cm anterior mediastinal lymph node. The thyroid gland is unremarkable. The soft tissues of the neck are unremarkable. There are degenerative changes in the cervical spine. IMPRESSION: 1. Patent cervical and proximal intracranial vasculature without intracranial aneurysms. 2. Indeterminate 2.8cm anterior mediastinal lymph node. Further evaluation with a dedicated chest CT is recommended. Please note that all CT scans at this facility use dose modulation, iterative reconstruction, and/or weight-based dosing when appropriate to reduce radiation dose to as low as reasonably achievable. Dictated by: Samantha Alaniz MD @ 01/02/2025 16:26:34 (Electronic Signature)
--- NOTE | 2025-01-02 15:35 | CT_ITS ---
Patient: SILVIA CHEEK Facility:?[facility] RIS Patient ID:?[id number] Site Patient ID:?[id number]. Site :?[id number] Study:?CT-Head Angio CTA HEAD W/ISOVUE 370 95CC-01/02/2025 4:17:06 PM Ordering Physician:Surjit Diallo Final Report: CT ANGIOGRAM HEAD AND NECK DATE: 01/02/2025. CLINICAL HISTORY: Patient with right-sided amaurosis fugax. TECHNIQUE: Standard helical CT image acquisition through the head and neck was performed after intravenous contrast bolus enhancement. 2D and 3D MIP images for post-processing were performed and interpreted on an independent workstation and 3D images were permanently archived. COMPARISON: CT same day. FINDINGS: The origins of the great vessels from the aortic arch are patent. The origin of the right vertebral artery is patent. The origin of the left vertebral artery is patent. The common carotid arteries are patent. There is no stenosis at the origin of the right internal carotid artery by NASCET criteria. There is no stenosis at the origin of the left internal carotid artery by NASCET criteria. The rest of the cervical segments of the internal carotid arteries are patent up to their intracranial segments. The intracranial segments of the internal carotid arteries are patent. The vertebral arteries are codominant. The cervical segments of the vertebral arteries are patent. The intracranial segments of the vertebral arteries are patent. The middle cerebral arteries are normal without aneurysm or proximal occlusion identified. The anterior cerebral arteries are normal without aneurysm or proximal occlusion identified. The anterior communicating artery is well visualized and appears normal. The basilar artery is normal without aneurysm or occlusion. The posterior cerebral arteries are normal without aneurysm or proximal occlusion. There is normal opacification of major intracranial venous structures. The visualized lung apices demonstrate an indeterminate 2.8cm anterior mediastinal lymph node. The thyroid gland is unremarkable. The soft tissues of the neck are unremarkable. There are degenerative changes in the cervical spine. IMPRESSION: 1. Patent cervical and proximal intracranial vasculature without intracranial aneurysms. 2. Indeterminate 2.8cm anterior mediastinal lymph node. Further evaluation with a dedicated chest CT is recommended. Please note that all CT scans at this facility use dose modulation, iterative reconstruction, and/or weight-based dosing when appropriate to reduce radiation dose to as low as reasonably achievable. Dictated by: Samantha Alaniz MD @ 01/02/2025 16:26:49 (Electronic Signature)
--- NOTE | 2025-01-02 15:40 | ED_ITS ---
HPI - Eye Problem General Date Seen: 01/02/25 <Yoel Joyner MD - Last Filed: 01/02/25 15:57> Chief complaint: Eye Problems <Yoel Joyner MD - Last Filed: 01/02/25 15:57> Stated complaint: intermittent vision loss rt eye <Yoel Joyner MD - Last Filed: 01/02/25 15:57> Time Seen by Provider: 01/02/25 15:14 <Yoel Joyner MD - Last Filed: 01/02/25 15:57> Source: patient <Yoel Joyner MD - Last Filed: 01/02/25 15:57> Mode of arrival: ambulatory <Yoel Joyner MD - Last Filed: 01/02/25 15:57> Limitations: no limitations <Yoel Joyner MD - Last Filed: 01/02/25 15:57> History of Present Illness HPI Narrative: This pleasant 70-year-old gentleman presents here with approximately 30 minutes ago undergoing vision loss in his right eye, he had just gotten up from watching the football game, walking to the kitchen when he noticed he had blurriness in his eyes. He closed his left eye and noticed it was only in his right eye that he had blurriness. His left eye was totally normal. This lasted for approximately 5 minutes, he was still able to see light versus dark, but there was it least almost all the vision was gone in the right eye. After 5 minutes he everything normalized for him. He did not notice any chest pain any feeling that his heart was racing, denies any numbness tingling or weakness in his hands or his feet, any headaches either before or after, no problems s lurring his speech, facial droops, no history of having this previously, no history of previous strokes, no previous heart issues. Does have a history of atrial fibrillation oz on only metoprolol does not take any aspirin or any anticoagulants, Last got his eyes checked by an baton twirler approximately 6 months ago and said he had normal pressures with no evidence of glaucoma. Does have a history of rheumatoid arthritis in on a very low dose of prednisone 1 mg. <Yoel Joyner MD - Last Filed: 01/02/25 15:57> Related Data Home medications: Home Medications ?Medication ?Instructions ?Recorded ?Confirmed lisinopril 10 1 tab PO DAILY 03/24/2312/07 8/25 mg-hydrochlorothiazide 12.5 mg tablet Previous Rx's ?Medication ?Instructions ?Recorded acetaminophen 325 mg tablet 650 mg (2 x 325 mg) PO QID 14 days 03/26/23 #112 tabs gabapentin 300 mg capsule 300 mg PO TID #90 caps 03/26 hydroxyzine pamoate 25 mg capsule 25 mg PO Q4H PRN Paola n 14 days #30 03/26/23 caps ibuprofen 400 mg tablet 400 mg PO TID #90 tabs 03/26 metoprolol tartrate 25 mg tablet 25 mg PO BID 30 days #60 tabs 03/26/23 omeprazole 20 mg capsule,delayed 20 mg PO DAILY #30 ca ps 03/26/23 release oxycodone 5 mg tablet 5 mg PO QID PRN pain #30 tab s 03/26/23 sennosides 8.6 mg-docusate sodium 1 tab PO BID 30 days #60 tabs 03/26/23 50 mg tablet (Stool Softener-Laxative) <Yoel Joyner MD - Last Filed: 01/02/25 15:57> Allergies/adverse reactions: Allergies Allergy/AdvReac Type Severity Reaction Status Date / Time No Known Drug Allergies Allergy Verified 01/02/25 15:11 <Yoel Joyner MD - Last Filed: 01/02/25 15:57> Review of Systems Status of ROS: Reports: 10 or more systems reviewed and unremarkable except as noted in History and below <Yoel Joyner MD - Last Filed: 01/02/25 15:57> [facility] Medical History: Medical History Degenerative joint disease (DJD) of lumbar spine ?M47.816 - Spondylosis without myelopathy or radiculopathy, lumbar region (ICD-10) Hypertension ?I10 - Essential (primary) hypertension (ICD-10) <Yoel Joyner MD - Last Filed: 01/02/25 15:57> Surgical History: Surgical History H/O inguinal hernia repair ?Z98.890 - Other specified postprocedural states (ICD-10) ?Z87.19 - Personal history of other diseases of the digestive system (ICD-10) <Yoel Joyner MD - Last Filed: 01/02/25 15:57> Social History: Social History What is your current living situation?: I presently have a place to live Problems where you live: no known problems Problems where you live details: n/a In the past 12 months, utilities in danger of being shut off: no In past 12 months, lack of transportation kept you from medical appts, meetings, work, or getting things needed for daily living: no In the past 12 mos, have been you worried that your food would run out before you had money to buy more?: never true In the past 12 mos, the food you bought just didn't last and you didn't have money to buy more?: never true Highest level of school completed/degree received: high school graduate Smoking Status: Never smoker Do you use any of these nicotine containing products: None How often do you have a drink containing alcohol: 2-3 times a week How many standard drinks containing alcohol do you have on a typical day: 1 or 2 AUDIT-C Alcohol total score: 3 Non-prescribed substance use: denies use How often does anyone, including family, friends and others, physically hurt you : never How often does anyone, including family, friends and others, insult or talk down to you: never How often does anyone, including family, friends and others, threaten you with harm: never How often does anyone, including family, friends and others, scream or curse at you: never service: No <Yoel Joyner MD - Last Filed: 01/02/25 15:57> Exam Narrative: Exam Narrative: On examination he is mildly hypertensive here, but otherwise normal speaking to me normally alert and oriented, months in reverse are normal. His pupils are equal round reactive to light, there is no nystagmus, his pupils are small but what I can see from his fundi appear normal to this examiner. Visual cunningham are normal on testing, cranial nerves 3-12 are entirely normal, he has normal carotid upstrokes, with no bruits. JVP is flat his neck is supple he is thin there is no lymphadenopathy anterior posterior chains, is no tenderness noted over the temporal arteries bilaterally. Chest is good air entry bilaterally no wheezing crackles noted his heart sounds are normal, no clicks murmurs or gallops any appears to be in regular rhythm. His abdomen is soft there is no guarding no organomegaly. Pulses are normal in his lower extremities and his upper, finger-nose testing is normal appears to be right-hand dominant, supervisor burling and joining strengths are normal, no pronator drift. Heel-dowlnig testing is normal, distal and proximal muscles are normal. He is able to walk t andem knee with no problems at all. Visual acuity in his right eye is 20 /40, in his left eye is 20/ 50. <Yoel Joyner MD - Last Filed: 01/02/25 15:57> Const: Vital Signs, click to edit/add: Vital Signs - 24 hr 01/02/25 15:11 01/02/25 16:22 Temperature 98.9 F Pulse Rate [Pulse Oximeter] 67 68 Respiratory Rate 18 18 Blood Pressure [Ri ght Upper Arm] 164/86 H 159/87 H Pulse Oximetry 98 98 Oxygen Delivery Me thod Room Air Room Air <Yoel Joyner MD - Last Filed: 01/02/25 15:57> Vital Signs, click to edit/add: Vital Signs - 24 hr 01/02/25 15:11 01/02/25 16:22 Temperature 98.9 F Pulse Rate [Pulse Oximeter] 67 68 Respiratory Rate 18 18 Blood Pressure [Ri ght Upper Arm] 164/86 H 159/87 H Pulse Oximetry 98 98 Oxygen Delivery Me thod Room Air Room Air <Paramjit Guido MD - Last Filed: 01/02/25 17:07> Documenting provider has reviewed patient's vital signs: yes <Yoel Joyner MD - Last Filed: 01/02/25 15:57> Course Reevaluation(s) Time of Reevaluation #1: 15:56 <Yoel Joyner MD - Last Filed: 01/02/25 15:57> Reevaluation #1: Patient signed over to Dr. Guido for follow-up of lab tests, and CT CTA, I would suspect that they will need to be on aspirin here, with follow-up for formal optometry/ophthalmology visit. Along with primary care. <Yoel Joyner MD - Last Filed: 01/02/25 15:57> Time of Reevaluation #2: 16:17 <Paramjit Guido MD - Last Filed: 01/02/25 17:07> Reevaluation #2: Care accepted from Dr. Sprague change of shift. Briefly, 70-year-old male with episode of pain was decreased vision in the right eye that lasted about 30 minutes, symptoms are now resolved. No associated headache. Of the CTA are pending. Patient is not anticoagulated. <Paramjit Guido MD - Last Filed: 01/02/25 17:07> Time of Reevaluation #3: 16:54 <Paramjit Guido MD - Last Filed: 01/02/25 17:07> Reevaluation #3: CT scan of the head and panel interpreted by me with no acute changes. Radiology interpretation with patent cervical and intracranial vasculature. Labs independently interpreted by me with normal basic panel, CRP slightly elevated at 1.2. Patient recheck, we discussed findings and plan. Patient with paroxysmal atrial fibrillation, his chads Vasc score is 4 if including even today as a thromboembolic event (age, hypertension, TIA) and therefore should be anticoagulated. I discussed concern for thromboembolic event with patient, we discussed recommendation to start blood thinners, as well as risks and benefits of this. Patient does not want to start a blood thinner day. He is agreeable to starting an aspirin which we did discuss is not effective for atrial fibrillation related thromboembolic events. He will follow up with his regular doctor to discuss this further. <Paramjit Guido MD - Last Filed: 01/02/25 17:07> Vital Signs Vital signs: Initial Vital Signs Temperature 98.9 F 01/02/25 15:11 Temperature Source Temporal Artery Scan 01/02/25 15:11 Pulse Rate 67 01/02/25 15:11 Respiratory Rate 18 01/02/25 15:11 Blood Pressure 164/86 H 01/02/25 15:11 Blood Pressure Mean 112 H 01/02/25 15:11 Blood Pressure Position Sitting 01/02/25 15:11 Pulse Oximetry 98 01/02/25 15:11 Oxygen Delivery Method Room Air 01/02/25 15:11 Vital Signs Temperature 98.9 F 01/02/25 15:11 Pulse Rate 67 01/02/25 15:11 Respiratory Rate 18 01/02/25 15:11 Blood Pressure 164/86 H 01/02/25 15:11 Pulse Oximetry 98 01/02/25 15:11 Oxygen Delivery Method Room Air 01/02/25 15:11 Temperature 98.9 F 01/02/25 15:11 Pulse Rate 68 01/02/25 16:22 Respiratory Rate 18 01/02/25 16:22 Blood Pressure 159/87 H 01/02/25 16:22 Pulse Oximetry 98 01/02/25 16:22 Oxygen Delivery Method Room Air 01/02/25 16:22 <Yoel Joyner MD - Last Filed: 01/02/25 15:57> Initial Vital Signs Temperature 98.9 F 01/02/25 15:11 Temperature Source Temporal Artery Scan 01/02/25 15:11 Pulse Rate 67 01/02/25 15:11 Respiratory Rate 18 01/02/25 15:11 Blood Pressure 164/86 H 01/02/25 15:11 Blood Pressure Mean 112 H 01/02/25 15:11 Blood Pressure Position Sitting 01/02/25 15:11 Pulse Oximetry 98 01/02/25 15:11 Oxygen Delivery Method Room Air 01/02/25 15:11 Vital Signs Temperature 98.9 F 01/02/25 15:11 Pulse Rate 67 01/02/25 15:11 Respiratory Rate 18 01/02/25 15:11 Blood Pressure 164/86 H 01/02/25 15:11 Pulse Oximetry 98 01/02/25 15:11 Oxygen Delivery Method Room Air 01/02/25 15:11 Temperature 98.9 F 01/02/25 15:11 Pulse Rate 68 01/02/25 16:22 Respiratory Rate 18 01/02/25 16:22 Blood Pressure 159/87 H 01/02/25 16:22 Pulse Oximetry 98 01/02/25 16:22 Oxygen Delivery Method Room Air 01/02/25 16:22 <Paramjit Guido MD - Last Filed: 01/02/25 17:07> Medications Administered Medications: Discontinued Medications Generic Name Dose Route Start Last Admin Trade Name Freq PRN Reason Stop Dose Admin Sodium Chloride 1,000 mls @ 1,000 mls/hr 01/02/25 15:45 01/02/25 16:12 0.9 % Sodium Chloride 1000 Ml IV 01/02/25 16:44 1,000 mls/hr .Q1H MURPHY Administration <Yoel Joyner MD - Last Filed: 01/02/25 15:57> Discontinued Medications Generic Name Dose Route Start Last Admin Trade Name Freq PRN Reason Stop Dose Admin Sodium Chloride 1,000 mls @ 1,000 mls/hr 01/02/25 15:45 01/02/25 16:12 0.9 % Sodium Chloride 1000 Ml IV 01/02/25 16:44 1,000 mls/hr .Q1H MURPHY Administration <Paramjit Guido MD - Last Filed: 01/02/25 17:07> MDM - Eye Problem MDM Narrative Medical decision making narrative: During this evaluation I considered multiple diagnosis including amaurosis fugax, glaucoma, foreign body, stroke, aneurysmal cause, retinal occlusion, both venous and arterial, temporal arteritis, or other vasculitis. Irididitis would be another cause. I suspect that this is amaurosis fugax given his history of atrial fibrillation, he will need a CT of his head, CTA of his head neck, and laboratory work I will sign him out to the oncoming physician, EKG will also be done he will be placed on a surveillance system monitor. <Yoel Joyner MD - Last Filed: 01/02/25 15:57> Differential Diagnosis Differential diagnosis: Likely corneal abrasion, conjunctivitis, acute iritis, hyphema, periorbital cellulitis, subconjunctival hemorrhage, glaucoma, corneal ulcer and ruptured globe <Yoel Joyner MD - Last Filed: 01/02/25 15:57> Medical Records Attestation: I reviewed the patient's medical records. <Yoel Joyner MD - Last Filed: 01/02/25 15:57> Lab Data Labs: Lab Results 01/02/25 Range/Units 15:45 INR 1.00 (0.91-1.10) APTT 29 (23-33) Seconds Sodium 138 (135-149) mmol/L Potassium 4.2 (3.6-5.1) mmol/L Chloride 101 (96-114) mmol/L Carbon Dioxide 31 (20-32) mmol/L Anion Gap 6 L (7-15) mEq/L BUN 15 (7-30) mg/dL Creatinine 0.7 (0.5-1.5) mg/dL Estimated GFR 100 ml/min Glucose 114 (60-115) mg/dL Calcium 9.0 (8.4-10.6) mg/dL C-Reactive Protein 1.2 H (0.5-1.0) mg/dL POC Creatinine 0.8 (0.6-1.3) mg/dl POC Troponin I 0.00 L (0.01-0.04) ng/ml <Yoel Joyner MD - Last Filed: 01/02/25 15:57> Lab Results 01/02/25 Range/Units 15:45 INR 1.00 (0.91-1.10) APTT 29 (23-33) Seconds Sodium 138 (135-149) mmol/L Potassium 4.2 (3.6-5.1) mmol/L Chloride 101 (96-114) mmol/L Carbon Dioxide 31 (20-32) mmol/L Anion Gap 6 L (7-15) mEq/L BUN 15 (7-30) mg/dL Creatinine 0.7 (0.5-1.5) mg/dL Estimated GFR 100 ml/min Glucose 114 (60-115) mg/dL Calcium 9.0 (8.4-10.6) mg/dL C-Reactive Protein 1.2 H (0.5-1.0) mg/dL POC Creatinine 0.8 (0.6-1.3) mg/dl POC Troponin I 0.00 L (0.01-0.04) ng/ml <Paramjit Guido MD - Last Filed: 01/02/25 17:07> ECG Data Attestation: I personally reviewed and interpreted this ECG as follows: <Yoel Joyner MD - Last Filed: 01/02/25 15:57> ECG interpretation date: 01/02/25 <Yoel Joyner MD - Last Filed: 01/02/25 15:57> Prior ECG tracings: not available for review <Yoel Joyner MD - Last Filed: 01/02/25 15:57> Interpretation: EKG looks normal sinus rhythm normal EKG a ventricular rate 70. Asse ssment normal EKG. 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 This is similar to a stroke, and can be caused by blood clots from the heart related to your atrial fibrillation traveling to the eye. Treatment recommendation today is to start a blood thinner like Eliquis or Xarelto. As you have declined this today, start taking a baby aspirin daily. This will not be as effective as a blood thinner with regard to stroke prevention. Follow-up with your primary care doctor this week to further discu ss your options. <Yoel Joyner MD - Last Filed: 01/02/25 15:57> Activity Level: No Restrictions <Yoel Joyner MD - Last Filed: 01/02/25 15:57> No Restrictions <Paramjit Guido MD - Last Filed: 01/02/25 17:07> Discharge Diet: Regular <Yoel Joyner MD - Last Filed: 01/02/25 15:57> Regular <Paramjit Guido MD - Last Filed: 01/02/25 17:07> Prescriptions: No Action lisinopril-hydrochlorothiazide 10-12.5 mg tablet 1 tab PO DAILY hydroxyzine pamoate 25 mg Capsule 25 mg PO Q4H PRN (Reason: Pain) 14 Days Qty: 30 1RF acetaminophen 325 mg tablet 650 mg PO QID 14 Days Qty: 112 1RF ibuprofen 400 mg tablet 400 mg PO TID Qty: 90 2RF Rx Instructions: Take with food. Do not take on an empty stomach. omeprazole 20 mg capsule,delayed release(DR/EC) 20 mg PO DAILY Qty: 30 2RF Rx Instructions: Take this medication while taking prescribed ibuprofen for relief of pain and inflammation. oxycodone 5 mg tablet 5 mg PO QID PRN (Reason: pain) Qty: 30 0RF Rx Instructions: Do not take on an empty stomach. gabapentin 300 mg capsule 300 mg PO TID Qty: 90 2RF Rx Instructions: This medication helps decrease nerve pain. metoprolol tartrate 25 mg Tablet 25 mg PO BID 30 Days Qty: 60 1RF sennosides-docusate sodium [Stool Softener-Laxative] 8.6-50 mg Tablet 1 tab PO BID 30 Days Qty: 60 1RF <Yoel Joyner MD - Last Filed: 01/02/25 15:57> Follow Up/Referrals: González Stubbs MD [Primary Care Provider, Family Practice] <Yoel Joyner MD - Last Filed: 01/02/25 15:57> Stand Alone Forms: MyHealth Info Instructions <Yoel Joyner MD - Last Filed: 01/02/25 15:57>
[2025-01-02 15:56] LABS: Creatinine, Point-of-Care* 0.8 mg/dl (0.6-1.3)
[2025-01-02 16:06] LABS: Chloride* 101 mmol/L (96-114); Potassium* 4.2 mmol/L (3.6-5.1); Sodium* 138 mmol/L (135-149); Troponin, Point-of-Care* 0.00 ng/ml (0.01-0.04)
[2025-01-02 16:08] LABS: INR 1.00 (0.91-1.10); Prothrombin Time 14.0 Seconds
[2025-01-02 16:09] LABS: Anion Gap 6 mEq/L (7-15); Blood Urea Nitrogen* 15 mg/dL (7-30); Calcium* 9.0 mg/dL (8.4-10.6); Carbon Dioxide* 31 mmol/L (20-32); Creatinine* 0.7 mg/dL (0.5-1.5); Estimated Glomerular Filt Rate 100 ml/min; Glucose* 114 mg/dL (60-115)
== END 2025-01-02 17:20 | disposition home or self-care (01) ==
PROVIDERS: Emergency Provider Family Medicine; PCP Family Medicine
DX: H53.121 Transient visual loss, right eye (principal); I48.0 Paroxysmal atrial fibrillation; Z79.899 Other long term (current) drug therapy
CPT/HCPCS: 36415; 70450; 70496; 70498; 80048; 82565; 84443; 84484; 85610; 85730; 86140; 93005; 96360; 99284; 99285; J7030; Q9967